=== PATIENT | male | born 1950 | race Caucasian/White ===

== ENCOUNTER → 2017-05-14 | Outpatient (CLI) | payer MEDICARE, BC ==
[2017-05-14 13:19] LABS: ABSOLUTE BASOPHILS # (AUTO) 0.1 10^3/uL (0.0-0.2); ABSOLUTE EOSINOPHILS # (AUTO) 0.3 10^3/uL (0.0-0.6); ABSOLUTE LYMPHOCYTES (AUTO) 1.8 10^3/uL (0.5-4.7); ABSOLUTE MONOCYTES (AUTO) 0.4 10^3/uL (0.1-1.4); EOSINOPHILS % (AUTO) 4.7 % (0-6); HEMATOCRIT 44.3 % (37.9-51.0); HEMOGLOBIN 15.2 g/dL (13.5-17.0); LYMPHOCYTES % (AUTO) 32.8 % (13-45); MEAN CORPUSCULAR HEMOGLOBIN 30.3 pg (27.0-33.4); MEAN CORPUSCULAR HGB CONC 34.2 g/dL (32.0-36.0); MEAN CORPUSCULAR VOLUME 89 fl (80-97); MONOCYTES % (AUTO) 7.1 % (3-13); PLATELET COUNT 202 10^3/uL (150-450); RED CELL DISTRIBUTION WIDTH 14.3 % (11.5-14.0); SEGMENTED NEUTROPHILS % (AUTO) 54.4 % (42-78); TOTAL CELLS COUNTED % (AUTO) 100 %; WHITE BLOOD COUNT 5.5 10^3/uL (4.0-10.5)
[2017-05-14 13:37] LABS: ALANINE AMINOTRANSFERASE 32 U/L (21-72); ALKALINE PHOSPHATASE 61 U/L (38-126); ANION GAP 5 (5-19); ASPARTATE AMINO TRANSFERASE 23 U/L (17-59); BILIRUBIN,DIRECT 0.3 mg/dL (0.0-0.4); BILIRUBIN,TOTAL 0.5 mg/dL (0.2-1.3); BLOOD UREA NITROGEN 16 mg/dL (7-20); CALCIUM 9.1 mg/dL (8.4-10.2); CARBON DIOXIDE 30 mmol/L (22-30); CHLORIDE 105 mmol/L (98-107); CHOLESTEROL 209.28 mg/dL (0-200); GLUCOSE 89 mg/dL (75-110); POTASSIUM 4.4 mmol/L (3.6-5.0); SODIUM 140.4 mmol/L (137-145); TOTAL PROTEIN 6.8 g/dL (6.3-8.2); TRIGLYCERIDES 121 mg/dL (<150)
[2017-05-14 13:48] LABS: DIRECT LDL 163 mg/dL (<100)
[2017-05-14 13:55] LABS: FREE T4 (FREE THYROXINE) 1.12 ng/dL (0.78-2.19)
[2017-05-14 14:09] LABS: THYROID STIMULATING HORMONE 4.69 uIU/mL (0.47-4.68)
== END ==
LOC: OD 11:49
DX: R53.83 Other fatigue (principal); Z79.899 Other long term (current) drug therapy; Z12.5 Encounter for screening for malignant neoplasm of prostate; R73.9 Hyperglycemia, unspecified; E78.5 Hyperlipidemia, unspecified; E03.9 Hypothyroidism, unspecified; E55.9 Vitamin D deficiency, unspecified
CPT/HCPCS: 36415; 84439; 82306; 84443; 85025; 80053; 83036; 80061; G0103

== ENCOUNTER → 2017-08-20 | Outpatient (CLI) | payer MEDICARE, BC ==
[2017-08-20 14:11] LABS: FREE T4 (FREE THYROXINE) 1.33 ng/dL (0.78-2.19)
[2017-08-20 14:25] LABS: THYROID STIMULATING HORMONE 0.17 uIU/mL (0.47-4.68)
== END ==
LOC: OD 12:24
PROVIDERS: ATTEND Internal Medicine
DX: E03.9 Hypothyroidism, unspecified (principal)
CPT/HCPCS: 36415; 84439; 84443

== ENCOUNTER → 2018-04-28 | Outpatient (CLI) | payer MEDICARE, BC ==
--- NOTE | 2018-04-29 09:45 | RADIOLOGY REPORT (SQ) ---
EXAM DESCRIPTION: PET CT SKULL/THIGH COMPLETED DATE/TIME: 04/28/2018 10:06 pm REASON FOR STUDY: R91.8 OTHER NONSPECIFIC ABNORMAL FINDING OF LUNG FIELD R91.8 OTHER NONSPECIFIC AB NORMAL FINDING OF LUNG FIELD COMPARISON: Patient's original CT of the chest was done at another facility. RADIONUCLIDE AND DOSE: 10 mCi F18 FDG The route of agent administration: Intravenous FASTING BLOOD SUGAR: 61 mg/dl CONTRAST TYPE AND DOSE: No CT contrast given. TECHNIQUE: Blood glucose level was verified. Above dose of FDG was injected intravenously. 2-D seg mented attenuation correction images were obtained from the base of the skull to the midthighs. Nonc ontrast CT images were obtained for attenuation correction and fusion with emission images. CT image s were performed without oral or intravenous contrast and are not sensitive for parenchymal lesions. A series of overlapping emission PET images were obtained. Images reviewed and manipulated at [facility] work station by the radiologist. Images stored on PACS. LIMITATIONS: None. FINDINGS: HEAD AND NECK: No areas of abnormal metabolic activity in the soft tissues of the head and neck. CHEST: There is a mass in the posterior left upper lobe which has a bilobed configuration and is eith er a single mass or two masses adjacent to each other. The larger component measures 2.6 x 3.1 cm wi th mean SUV 12.99. The second smaller component, located just inferior and anterior, measures 2.2 cm with mean SUV 16.93. There are two lymph nodes in the left hilum which are difficult to measure on noncontrast CT. Mean SUV values 10.13 and 8.77. ABDOMEN AND PELVIS: No areas of abnormal metabolic activity in the abdomen or pelvis. Expected physi ologic activity is present in the genitourinary system and bowel. PROXIMAL LOWER EXTREMITIES: No areas of abnormal metabolic activity in the soft tissues of the lower extremities. BONES: No abnormal metabolic activity in the visualized skeleton. ADDITIONAL CT FINDINGS: Infrarenal abdominal aortic aneurysm with maximum transverse measurement 3.5 cm. No additional significant findings on the noncontrast CT images. OTHER: No other significant findings. Background blood pool activity mean SUV 1.36. Background live r activity mean SUV 2.02. IMPRESSION: 1. BILOBED MASS IN THE POSTERIOR LEFT UPPER LOBE DESCRIBED. LEFT HILAR ADENOPATHY CONSISTENT WITH METASTASES. NO OTHER AREAS OF ABNORMAL ACTIVITY IN THE CHEST. NO EVIDENCE OF METASTATIC INVOLVEMEN T IN THE HEAD AND NECK, ABDOMEN, OR PELVIS. 2. 3.5 CM INFRARENAL ABDOMINAL AORTIC ANEURYSM. TECHNICAL DOCUMENTATION: JOB ID: [id number] [employer]- All Rights Reserved Reading location - IP/workstation name: [facility]
== END ==
LOC: RAD 19:31
PROVIDERS: ATTEND Internal Medicine Medical Oncology
DX: R91.8 Other nonspecific abnormal finding of lung field (principal); I71.4 Abdominal aortic aneurysm, without rupture
CPT/HCPCS: 78815; A9552

== ENCOUNTER 2018-04-30 08:55 | Day surgery (SDC) | payer MEDICARE, BC ==
[2018-04-30 10:07] LABS: HEMATOCRIT 42.5 % (37.9-51.0); HEMOGLOBIN 14.6 g/dL (13.5-17.0); MEAN CORPUSCULAR HEMOGLOBIN 30.2 pg (27.0-33.4); MEAN CORPUSCULAR HGB CONC 34.4 g/dL (32.0-36.0); MEAN CORPUSCULAR VOLUME 88 fl (80-97); PLATELET COUNT 220 10^3/uL (150-450); RED BLOOD COUNT 4.83 10^6/uL (4.35-5.55); RED CELL DISTRIBUTION WIDTH 14.1 % (11.5-14.0); WHITE BLOOD COUNT 7.9 10^3/uL (4.0-10.5)
[2018-04-30 10:13] LABS: INTERNATIONAL RATION (INR) 0.94; PARTIAL THROMBOPLASTIN TIME 27.6 SEC (23.5-35.8); PROTHROMBIN TIME 13.1 SEC (11.4-15.4)
[2018-04-30 10:29] LABS: BLOOD UREA NITROGEN 17 mg/dL (7-20)
[2018-04-30] MEDS ORDERED: FENTANYL CITRATE INJ/PF 100 MCG/2 ML AMPUL ONE (11:00)
[2018-04-30] MEDS ORDERED: LIDOCAINE 1% INJ-PF (10 MG/ML) 30 ML SDV ONE (11:00)
[2018-04-30] MEDS ORDERED: MIDAZOLAM 2 MG/2 ML INJ ONE (11:00)
--- NOTE | 2018-04-30 12:27 | RADIOLOGY REPORT (SQ) ---
EXAM DESCRIPTION: CHEST SINGLE VIEW COMPLETED DATE/TIME: 04/30/2018 12:17 pm REASON FOR STUDY: ABNORMAL FINDING OF LUNG FIELD. POST BIOPSY COMPARISON: None. EXAM PARAMETERS: NUMBER OF VIEWS: One view. TECHNIQUE: Single frontal radiographic view of the chest acquired. RADIATION DOSE: NA LIMITATIONS: None. FINDINGS: LUNGS AND PLEURA: Hazy density in the left upper lobe. Lungs otherwise clear. No pleural effusion. No pneumothorax. MEDIASTINUM AND HILAR STRUCTURES: No masses. Contour normal. HEART AND VASCULAR STRUCTURES: Heart normal in size. Normal vasculature. BONES: No acute findings. HARDWARE: None in the chest. OTHER: No other significant finding. IMPRESSION: NO PNEUMOTHORAX FOLLOWING PERCUTANEOUS LUNG BIOPSY. HAZY DENSITY IN THE LEFT UPPER LOBE SECONDARY TO LUNG MASS AND POST BIOPSY CHANGE. TECHNICAL DOCUMENTATION: JOB ID: [id number] [employer]- All Rights Reserved Reading location - IP/workstation name: [email or web address]
--- NOTE | 2018-04-30 13:12 | RADIOLOGY REPORT (SQ) ---
EXAM DESCRIPTION: CT BIOPSY LUNG/MEDIASTINUM; CT NEEDLE PLACEMENT COMPLETED DATE/TIME: 04/30/2018 11:43 am REASON FOR STUDY: ABNORMAL FINDING OF LUNG FIELD; ABNORMAL FINDING OF LUNG FIELD, LUNG BIOPSY R91.8 OTHER NONSPECIFIC ABNORMAL FINDING OF LUNG FIELD Z79.01 PRISON (CURRENT) USE OF ANTICOAGULANTS COMPARISON: None. FLUORO TIME: 5.4 seconds of fluoroscopy was used. 111 CT fluoroscopic images were obtained and saved to PACS. LIMITATIONS: None. PROCEDURE: After obtaining informed consent and explaining the risks and benefits of conscious sedat ion,the patient agreed to the procedure. The patient was brought to the CT suite and was placed prone on the CT gurney. The patient was prepped and draped in the usual sterile fashion . Axial images we re obtained for targeting of theleft upper lobe. An appropriate access site was selected. IV consciou s sedation was administered and physician direction by the registered nurse using 1 milligrams of Alvarado sed and 75 micrograms of fentanyl. Physiologic monitoring was provided before, during, and after arpan tion. The total sedation time was 37 minutes. Documentation face to face time, the performing proceduralist, spent monitoring the patient: [address] scanners at this facility use dose modulation, iterative reconstruction, and/or weight based d osing when appropriate to reduce radiation dose to as low as reasonably achievable (ALARA). [facility]: Dose Right [facility]: CareDose [facility]: Dose Right [facility]: Teradose 4D [facility]: [employer] After sterile skin prep and local lidocaine for skin and deep tissue anesthesia, a coaxial biopsy nee dle was used to obtain multiple cores of tissue. The biopsy tissue was submitted to the lab. There we re no immediate complications. Pathology is pending at the time of dictation. IMPRESSION: SUCCESSFUL CT GUIDED PERCUTANEOUS LUNG BIOPSY OF THE LEFT UPPER LOBE. COMMENT: Patient medication list reviewed: Yes- Quality ID# [id number]:Eligible professional attests to doc umenting in the medical record they obtained, updated, or reviewed the patient's current medications. . Quality ID 145: Final reports for procedures using fluoroscopy that document radiation exposure tiburcio nirmala, or exposure time and number of fluorographic images (if radiation exposure indices are not avail able) Quality ID # 436: Final reports with documentation of one or more dose reduction techniques (e.g., Au tomated exposure control, adjustment of the mA and/or kV according to patient size, use of iterative reconstruction technique) TECHNICAL DOCUMENTATION: JOB ID: [id number] [employer]- All Rights Reserved Reading location - IP/workstation name: [email or web address]
--- NOTE | 2018-04-30 13:12 | RADIOLOGY REPORT (SQ) ---
EXAM DESCRIPTION: CT BIOPSY LUNG/MEDIASTINUM; CT NEEDLE PLACEMENT COMPLETED DATE/TIME: 04/30/2018 11:43 am REASON FOR STUDY: ABNORMAL FINDING OF LUNG FIELD; ABNORMAL FINDING OF LUNG FIELD, LUNG BIOPSY R91.8 OTHER NONSPECIFIC ABNORMAL FINDING OF LUNG FIELD Z79.01 ALF (CURRENT) USE OF ANTICOAGULANTS COMPARISON: None. FLUORO TIME: 5.4 seconds of fluoroscopy was used. 111 CT fluoroscopic images were obtained and saved to PACS. LIMITATIONS: None. PROCEDURE: After obtaining informed consent and explaining the risks and benefits of conscious sedat ion,the patient agreed to the procedure. The patient was brought to the CT suite and was placed prone on the CT gurney. The patient was prepped and draped in the usual sterile fashion . Axial images we re obtained for targeting of theleft upper lobe. An appropriate access site was selected. IV consciou s sedation was administered and physician direction by the registered nurse using 1 milligrams of Alvarado sed and 75 micrograms of fentanyl. Physiologic monitoring was provided before, during, and after arpan tion. The total sedation time was 37 minutes. Documentation face to face time, the performing proceduralist, spent monitoring the patient: [address] scanners at this facility use dose modulation, iterative reconstruction, and/or weight based d osing when appropriate to reduce radiation dose to as low as reasonably achievable (ALARA). [facility]: Dose Right [facility]: CareDose [facility]: Dose Right [facility]: Teradose 4D [facility]: [employer] After sterile skin prep and local lidocaine for skin and deep tissue anesthesia, a coaxial biopsy nee dle was used to obtain multiple cores of tissue. The biopsy tissue was submitted to the lab. There we re no immediate complications. Pathology is pending at the time of dictation. IMPRESSION: SUCCESSFUL CT GUIDED PERCUTANEOUS LUNG BIOPSY OF THE LEFT UPPER LOBE. COMMENT: Patient medication list reviewed: Yes- Quality ID# [id number]:Eligible professional attests to doc umenting in the medical record they obtained, updated, or reviewed the patient's current medications. . Quality ID 145: Final reports for procedures using fluoroscopy that document radiation exposure tiburcio nirmala, or exposure time and number of fluorographic images (if radiation exposure indices are not avail able) Quality ID # 436: Final reports with documentation of one or more dose reduction techniques (e.g., Au tomated exposure control, adjustment of the mA and/or kV according to patient size, use of iterative reconstruction technique) TECHNICAL DOCUMENTATION: JOB ID: [id number] [employer]- All Rights Reserved Reading location - IP/workstation name: [facility]
--- NOTE | 2018-04-30 14:25 | RADIOLOGY REPORT (SQ) ---
EXAM DESCRIPTION: CHEST SINGLE VIEW COMPLETED DATE/TIME: 04/30/2018 2:16 pm REASON FOR STUDY: ABNORMAL FINDING OF LUNG FIELD. POST BIOPSY--- 2 HR FILM COMPARISON: 04/30/2018 at 1204 hours. EXAM PARAMETERS: NUMBER OF VIEWS: One view. TECHNIQUE: Single frontal radiographic view of the chest acquired. RADIATION DOSE: NA LIMITATIONS: None. FINDINGS: LUNGS AND PLEURA: No pneumothorax. Left upper lobe density unchanged. MEDIASTINUM AND HILAR STRUCTURES: No masses. Contour normal. HEART AND VASCULAR STRUCTURES: Heart normal in size. Normal vasculature. BONES: No acute findings. HARDWARE: None in the chest. OTHER: No other significant finding. IMPRESSION: STABLE APPEARANCE. NO PNEUMOTHORAX 2 HOURS FOLLOWING PERCUTANEOUS LEFT LUNG BIOPSY. TECHNICAL DOCUMENTATION: JOB ID: [id number] [employer]- All Rights Reserved Reading location - IP/workstation name: [facility]
[2018-04-30 15:00] VITALS: BP 114/68
== END 2018-04-30 15:01 | disposition home or self-care (01) ==
LOC: RAD 08:55
PROVIDERS: ATTEND Internal Medicine Medical Oncology
DX: C34.12 Malignant neoplasm of upper lobe, left bronchus or lung (principal); Z79.01 Long term (current) use of anticoagulants; Z79.899 Other long term (current) drug therapy; Z79.82 Long term (current) use of aspirin
CPT/HCPCS: 36415; 84520; 82565; 85027; 85610; 85730; 88342 ×2; 88341 ×2; 88305 ×2; 88313 ×2; 71045; 77012; 32405; J2250; J3010; J3490

== ENCOUNTER → 2018-05-05 | Outpatient (CLI) | payer MEDICARE, BC ==
--- NOTE | 2018-05-05 15:48 | RADIOLOGY REPORT (SQ) ---
EXAM DESCRIPTION: MRI HEAD COMBO COMPLETED DATE/TIME: 05/05/2018 3:10 pm REASON FOR STUDY: LUNG CANCER C34.12 MALIGNANT NEOPLASM OF UPPER LOBE, LEFT BRONCHUS OR JESS COMPARISON: PET-CT 04/28/2018 TECHNIQUE: Multiplanar imaging includes noncontrasted T1, T2, FLAIR, diffusion with ADC map and post gadolinium contrast T1 sequences. Images stored on PACS. CONTRAST TYPE AND DOSE: 15 mL Dotarem. RENAL FUNCTION: Creatinine 1.2 GFR 62 LIMITATIONS: None. FINDINGS: ANATOMY: No anomalies. Normal vascular flow voids. Pituitary fossa normal. CSF SPACES: Normal in size and contour. No hemorrhage. CEREBRUM: Sulci and gyri normal in size and contour. There are a few scattered areas of increased wh ite matter signal on FLAIR imaging. No evidence of hemorrhage, mass, or extraaxial fluid collection. No abnormal enhancement post contrast. POSTERIOR FOSSA: No signal alteration. No hemorrhage. No edema, masses, or mass effect. Internal kvng tory canals, cerebellopontine angles, mastoids normal. No enhancing lesions. No abnormal enhancement post contrast. DIFFUSION IMAGING: Negative for acute or subacute infarction. ORBITS: No masses. Globes normal. PARANASAL SINUSES: No fluid levels. Mucosa normal. OTHER: No other significant finding. IMPRESSION: Mild chronic microvascular ischemia with no acute intracranial imaging findings. There is no evidence of intracranial metastases. EVIDENCE OF ACUTE STROKE: NO. TECHNICAL DOCUMENTATION: JOB ID: [id number] [employer]- All Rights Reserved Reading location - IP/workstation name: [facility]
== END ==
LOC: RAD 14:00
PROVIDERS: ATTEND Internal Medicine
DX: C34.12 Malignant neoplasm of upper lobe, left bronchus or lung (principal)
CPT/HCPCS: 82565; 70553; A9576

== ENCOUNTER 2018-06-29 06:59 | Day surgery (SDC) | payer MEDICARE, BC ==
[~2018-06-29 06:59] MED LIST: CEFAZOLIN 1 GM/D5W RTU 1 GM/50 ML RTUPB IV PRN; DEXTROSE 5%-1/2 NORMAL SALINE 500 ML IV PRN; DIAZEPAM 5 MG TABLET PO PRN; OXYCODONE-ACETAMINOPHEN 5-325 MG TABLET PO PRN
[2018-06-29 07:43] LABS: HEMATOCRIT 39.8 % (37.9-51.0); HEMOGLOBIN 13.8 g/dL (13.5-17.0); MEAN CORPUSCULAR HEMOGLOBIN 30.8 pg (27.0-33.4); MEAN CORPUSCULAR HGB CONC 34.6 g/dL (32.0-36.0); MEAN CORPUSCULAR VOLUME 89 fl (80-97); PLATELET COUNT 138 10^3/uL (150-450); RED BLOOD COUNT 4.46 10^6/uL (4.35-5.55); RED CELL DISTRIBUTION WIDTH 15.5 % (11.5-14.0)
[2018-06-29] MEDS ORDERED: CEFAZOLIN 1 GM/D5W RTU 1 GM/50 ML RTUPB IV ONE (07:56)
[2018-06-29] MEDS ORDERED: DIAZEPAM 5 MG TABLET ONE (07:56)
[2018-06-29] MEDS ORDERED: OXYCODONE-ACETAMINOPHEN 5-325 MG TABLET ONE (07:56)
[2018-06-29 08:10] LABS: ANION GAP 10 (5-19); BLOOD UREA NITROGEN 16 mg/dL (7-20); CALCIUM 8.3 mg/dL (8.4-10.2); CARBON DIOXIDE 20 mmol/L (22-30); CHLORIDE 107 mmol/L (98-107); GLUCOSE 104 mg/dL (75-110); POTASSIUM 4.6 mmol/L (3.6-5.0); SODIUM 136.9 mmol/L (137-145)
[2018-06-29] MEDS ORDERED: LIDOCAINE 0.5% INJ-PF (5 MG/ML) 50 ML SDV ONE ×2 (09:35→10:20)
[2018-06-29] MEDS ORDERED: MIDAZOLAM 2 MG/2 ML INJ ONE (09:35)
[2018-06-29] MEDS ORDERED: BACITRACIN INJ 50,000 UNIT VIAL ONE (09:36)
[2018-06-29] MEDS ORDERED: FENTANYL CITRATE INJ/PF 100 MCG/2 ML AMPUL ONE (09:36)
--- NOTE | 2018-06-29 10:50 | RADIOLOGY REPORT (SQ) ---
EXAM DESCRIPTION: CHEST SINGLE VIEW COMPLETED DATE/TIME: 06/29/2018 8:34 am REASON FOR STUDY: PREOP COMPARISON: 04/30/2018 EXAM PARAMETERS: NUMBER OF VIEWS: One view. TECHNIQUE: Single frontal radiographic view of the chest acquired. RADIATION DOSE: NA LIMITATIONS: None. FINDINGS: LUNGS AND PLEURA: Mild bandlike scarring or atelectasis left costophrenic angle. No effus ions. MEDIASTINUM AND HILAR STRUCTURES: No masses. Contour normal. HEART AND VASCULAR STRUCTURES: Heart normal in size. Normal vasculature. BONES: No acute findings. HARDWARE: None in the chest. OTHER: No other significant finding. IMPRESSION: NO ACUTE RADIOGRAPHIC FINDING IN THE CHEST. TECHNICAL DOCUMENTATION: JOB ID: [id number] [employer]- All Rights Reserved Reading location - IP/workstation name: [email or web address]
--- NOTE | 2018-06-29 11:00 | Discharge Summary ---
Discharge Summary (SDC) - Discharge Final Diagnosis: Left lung cancer. Date of Surgery: 06/29/18 Discharge Date: 06/29/18 Condition: Fair Treatment or Instructions: Discharge home [after recovery per ASU criteria]. Diet , as tolerated, when fully awake advance as tolerated. Activities within moderation encouraged. Follow up in my office by appointment in about [1 week]. Call for appointment. Leave wounds [covered], [keep clean and dry, until office visit in 1 week]. Hold of on school/work [until evaluation in office]. Meds per med rec. Percocet. May shower [in 48 hrs], [try to keep operated area as dry as possible]. Prescriptions: Oxycodone HCl/Acetaminophen [Percocet 5-325 mg Tablet] 1 tab PO ASDIR PRN #15 tab PRN Reason: Referrals: DANNIELLE SAMSON PA-C [Primary Care Provider] - Discharge Diet: As Tolerated Respiratory Treatments at Home: Deep Breathing/Coughing Discharge Activity: Activity As Tolerated Report the Following to Your Physician Immediately: Shortness of Breath, Unusual Bleeding
--- NOTE | 2018-06-29 11:02 | Operative Report ---
Operative Report DATE OF SURGERY: 06/29/18 PREOPERATIVE DIAGNOSIS: Left lung cancer. POSTOPERATIVE DIAGNOSIS: Left lung cancer. OPERATION: 1. Ultrasound evaluation of the right internal jugular vein. 2. Insertion of single-lumen Port-A-Cath via real-time ultrasound access in the right internal jugular vein. 3. Angiogram and interpretation. SURGEON: ASHLEIGH GIRON RAG WASHER: None. ANESTHESIA: Moderate Sedation TISSUE REMOVED OR ALTERED: Not applicable. COMPLICATIONS: None. ESTIMATED BLOOD LOSS: 5 mL. INTRAOPERATIVE FINDINGS: Of a satisfactory right internal jugular vein, estimated to be about 1.5 cm in diameter. Support Port-A-Cath. Tip of Port-A-Cath just barely down in the right atrium. Satisfactory flow of contrast through the right atrium, ventricle and pulmonary outflow tract. Completion x- ray shows normal looking right apex catheter with no obvious untoward findings. PROCEDURE: After obtaining informed consent, the patient was taken to the Trimmer Buffing Wheel and positioned supine. The [right] neck and chest were prepared with chlorhexidine and draped out with sterile linen. After the " universal timeout", in which it was verified that the patient continued to receive antibiotic, the procedure commenced. A steriley sheathed ultrasound probe was used to evaluate the [right] internal jugular vein. Local anesthesia was infiltrated adjacent to the probe. Access into the [right] internal jugular vein was obtained using a micropuncture needle, followed by micropuncture wire and then a micropuncture catheter. This was followed by introduction of a 0.035 guidewire the tip of which was placed down into the inferior vena cava . The port sites was marked , locally anesthetized and incision made. Dissection now proceeded to the deep subcutaneous subcutaneous tissues so that a pocket for the port was made. Meticulous hemostasis was secured and the catheter was tunneled between the 2 incisions. Proximally, the catheter was now positioned using a peel-away sheath. Distally the catheter was tailored to an appropriate length and then mated to the port using the contained fixating device. The port was now placed in the pocket and the catheter optimally positioned. The port was accessed with a Woods needle and an angiogram done under digital subtraction. The findings as dictated. With adequate and satisfactory positioning, the lumen of the chamber was irrigated with heparinized solution. The wounds were now closed using interrupted 3-0 PDS to the subcutaneous tissues and a continuous subcuticular suture of 4-0 Monocryl to the skin. These are reinforced with Steri-Strips over benzoin and then dressings applied. Time: 0.2 minute. Dose: 10.42 m Gy Contrast: 6 mls. Isovue 300. Copies of the dictated operative report for Dr. Ashleigh Balderrama MD.
[2018-06-29 12:22] VITALS: BP 122/74
--- NOTE | 2018-06-29 14:48 | RADIOLOGY REPORT (SQ) ---
EXAM DESCRIPTION: PORTACATH INSERTION COMPLETED DATE/TIME: 06/29/2018 11:46 am REASON FOR STUDY: C34.12 C34.12 MALIGNANT NEOPLASM OF UPPER LOBE, LEFT BRONCHUS OR JESS Z79.899 [facility] (CURRENT) DRUG THERAPY COMPARISON: None. FLUOROSCOPY TIME: 0.2 minutes Spot images saved to PACS. TECHNIQUE: Intra-operative images acquired during surgical procedure to evaluate progress. NUMBER OF IMAGES: 8 LIMITATIONS: None. FINDINGS: Fluoroscopy was provided for intraoperative procedure. Please refer to the operative repo rt for further discussion. IMPRESSION: IMAGE(S) OBTAINED DURING PROCEDURE. COMMENT: Quality ID 145: Final reports for procedures using fluoroscopy that document radiation exp osure indices, or exposure time and number of fluorographic images (if radiation exposure indices are not available) Please consult full operative report of the attending physician for description of the procedure. TECHNICAL DOCUMENTATION: JOB ID: [id number] [employer]- All Rights Reserved Reading location - IP/workstation name: [email or web address]
== END 2018-06-29 11:45 | disposition home or self-care (01) ==
LOC: CCL 06:59
PROVIDERS: ATTEND Surgery
DX: C34.12 Malignant neoplasm of upper lobe, left bronchus or lung (principal); Z79.899 Other long term (current) drug therapy; E07.9 Disorder of thyroid, unspecified; Z87.891 Personal history of nicotine dependence; Z79.82 Long term (current) use of aspirin
CPT/HCPCS: 36415; 85027; 80048; 36561; 76937; 77001; 71045; C1752; C1788; Q9967; J2250; J3490 ×2; J0690; A9270 ×2; J3010; J1644

== ENCOUNTER 2018-07-14 03:34 | Emergency (ER) | payer MEDICARE, BC ==
[2018-07-14 04:06] LABS: ABSOLUTE EOSINOPHILS # (AUTO) 0.1 10^3/uL (0.0-0.6); ABSOLUTE LYMPHOCYTES (AUTO) 0.7 10^3/uL (0.5-4.7); ABSOLUTE MONOCYTES (AUTO) 0.9 10^3/uL (0.1-1.4); ABSOLUTE NEUT (AUTO) 4.9 10^3/uL (1.7-8.2); BASOPHILS % (AUTO) 0.1 % (0-2); EOSINOPHILS % (AUTO) 0.9 % (0-6); HEMATOCRIT 40.1 % (37.9-51.0); HEMOGLOBIN 13.5 g/dL (13.5-17.0); LYMPHOCYTES % (AUTO) 11.1 % (13-45); MEAN CORPUSCULAR HEMOGLOBIN 30.2 pg (27.0-33.4); MEAN CORPUSCULAR HGB CONC 33.6 g/dL (32.0-36.0); MEAN CORPUSCULAR VOLUME 90 fl (80-97); MONOCYTES % (AUTO) 13.8 % (3-13); PLATELET COUNT 172 10^3/uL (150-450); RED BLOOD COUNT 4.46 10^6/uL (4.35-5.55); RED CELL DISTRIBUTION WIDTH 15.1 % (11.5-14.0); SEGMENTED NEUTROPHILS % (AUTO) 74.1 % (42-78); TOTAL CELLS COUNTED % (AUTO) 100 %; WHITE BLOOD COUNT 6.6 10^3/uL (4.0-10.5)
[2018-07-14 04:14] LABS: ALANINE AMINOTRANSFERASE 25 U/L (21-72); ALBUMIN 3.6 g/dL (3.5-5.0); ALKALINE PHOSPHATASE 101 U/L (38-126); ANION GAP 10 (5-19); ASPARTATE AMINO TRANSFERASE 17 U/L (17-59); BILIRUBIN,DIRECT 0.3 mg/dL (0.0-0.4); BILIRUBIN,TOTAL 0.7 mg/dL (0.2-1.3); BLOOD UREA NITROGEN 16 mg/dL (7-20); CALCIUM 8.6 mg/dL (8.4-10.2); CARBON DIOXIDE 23 mmol/L (22-30); CHLORIDE 105 mmol/L (98-107); CREATINE KINASE 42 U/L (55-170); GLUCOSE 169 mg/dL (75-110); POTASSIUM 4.3 mmol/L (3.6-5.0); SODIUM 138.1 mmol/L (137-145); TOTAL PROTEIN 6.8 g/dL (6.3-8.2)
[2018-07-14 04:25] LABS: CREATINE KINASE MB 0.63 ng/mL (<4.55)
[2018-07-14 04:27] LABS: TROPONIN I 0.107 ng/mL
--- NOTE | 2018-07-14 05:04 | RADIOLOGY REPORT (SQ) ---
EXAM DESCRIPTION: XR CHEST 1 VIEW COMPLETED DATE/TME: 07/14/2018 03:55 CLINICAL HISTORY: 68 years, Male, sob COMPARISON: 06/29/2018 chest NUMBER OF VIEWS: 1 TECHNIQUE: Portable chest LIMITATIONS: None. FINDINGS: Heart size is normal. [id number] catheter in place. Postsurgical change of the cervical spine. Airspace opacity in the lateral right midlung, new from the prior. No pneumothorax. Masslike opacity in the left upper lobe/left suprahilar region as before. IMPRESSION: Masslike opacity in the left upper lobe/suprahilar region, as before. New airspace opacity in the lateral right midlung. This could reflect focal pneumonitis. Other etiologies are not excluded. [id number] catheter in place. copyright 2010 [employer]- All Rights Reserved
--- NOTE | 2018-07-14 05:18 | ER Document Report ---
ED Respiratory Problem - General TRAVEL OUTSIDE OF THE [place] IN LAST 30 DAYS: No <JOSH BANEGAS - Last Filed: 07/14/18 07:53> <MILAGRO MALIK - Last Filed: 07/14/18 12:31> - General Chief Complaint: Shortness Of Breath Stated Complaint: RESPIRATORY DISTRESS Time Seen by Provider: 07/14/18 03:59 Primary Care Provider: DANNIELLE LAGUERRE PA-C [Primary Care Provider] - Follow up as needed Notes: Patient is a 68-year-old male presents to the emergency department for generalized shortness of breath and right lower rib pain. Patient states Friday morning he woke up with pain in his right lower chest. States it feels as though he pulled a muscle. States the pain has slowly been decreasing over the last couple of days and rates it now 4 out of 10. States the pain increases upon coughing and moving. States he does have a history of stage IV non-small cell lung cancer in his left upper lobe. States his oxygen saturation is typically 97%. Patient is denying any generalized cough, congestion, fever. States he is currently on chemotherapy which she had 2 weeks ago and radiation which she had today. Patient states this evening he was walking upstairs to go to sleep when he got short of breath and 911 was alerted. According to EMS re ports patient had a room air saturation of 86%. Patient was given a total of 2 DuoNeb treatments and 125 mg of Solu-Medrol. States his oxygen saturation came up to 98%. Patient's initial room air oxygen saturation in the emergency room was 83%, placed on 2 L of oxygen per nasal cannula came up to 97%. Patient states treatments given by EMS did help his respiratory distress. States he still has a sore feeling in his right lower chest. Past medical history: Hypothyroidism, stage IV small cell lung cancer Medications: Amitriptyline, clonazepam, folic acid, Synthroid Allergies: None Patient's primary care provider is Dr. Laguerre, patient is a full code. Patient's oncologist is Dr. Key (JOSH BANEGAS) - Related Data Allergies/Adverse Reactions: No Known Allergies Allergy (Unverified 04/30/18 10:04) Past Medical History - General Information source: Patient - Social History Smoking Status: Never Smoker Chew tobacco use (# tins/day): No Drug Abuse: None Family History: Reviewed & Not Pertinent Patient has suicidal ideation: No Patient has homicidal ideation: No - Past Medical History Cardiac Medical History: Denies: Hx Coronary Artery Disease, Hx Heart Attack, Hx Hypertension Pulmonary Medical History: Reports: Hx Pneumonia Denies: Hx Asthma, Hx Bronchitis, Hx COPD Neurological Medical History: Denies: Hx Cerebrovascular Accident, Hx Seizures Renal/ Medical History: Denies: Hx Peritoneal Dialysis Musculoskeletal Medical History: Denies Hx Arthritis Past Surgical History: Reports: Hx Orthopedic Surgery - Immunizations Hx Diphtheria, Pertussis, Tetanus Vaccination: - UNKNOWN <JOSH BANEGAS - Last Filed: 07/14/18 07:53> Review of Systems - Review of Systems Constitutional: See HPI. denies: Chills, Fever EENT: See HPI Cardiovascular: See HPI Respiratory: See HPI Gastrointestinal: No symptoms reported Genitourinary: No symptoms reported Male Genitourinary: No symptoms reported Musculoskeletal: See HPI Skin: No symptoms reported Hematologic/Lymphatic: No symptoms reported Neurological/Psychological: No symptoms reported <JOSH BANEGAS - Last Filed: 07/14/18 07:53> Physical Exam <JOSH BANEGAS - Last Filed: 07/14/18 07:53> - Vital signs Vitals: Resp Pulse Ox 29 H 87 L 07/14/18 03:38 07/14/18 03:38 - Notes Notes: GENERAL: Alert, interacts well. No acute distress. HEAD: Normocephalic, atraumatic. EYES: Pupils equal, round, and reactive to light. Extraocular movements intact. ENT: Oral mucosa moist, tongue midline. NECK: Full range of motion. Supple. Trachea midline. LUNGS: Clear to auscultation bilaterally, no wheezes, rales, or rhonchi. Slightly tachypneic with a pulse oxygenation at 90% on 2 L oxygen via nasal ca nnula. HEART: Tachycardic rate and rhythm. No murmur ABDOMEN: Soft, non-tender. Non-distended. Bowel sounds present in all 4 quadrants. EXTREMITIES: Moves all 4 extremities spontaneously. No edema, normal radial and dorsalis pedis pulses bilaterally. No cyanosis. BACK: no cervical, thoracic, lumbar midline tenderness. No saddle anesthesia, normal distal neurovascular exam. NEUROLOGICAL: Alert and oriented x3. Normal speech. cranial nerves II through XII grossly intact PSYCH: Normal affect, normal mood. SKIN: Warm, dry, normal turgor. No rashes or lesions noted. (JOSH BANEGAS) Course - Laboratory Result Diagrams: 07/14/18 03:45 07/14/18 03:45 <JOSH BANEGAS - Last Filed: 07/14/18 07:53> - Laboratory Result Diagrams: 07/14/18 03:45 07/14/18 03:45 <MILAGRO MALIK - Last Filed: 07/14/18 12:31> - Re-evaluation Re-evalutation: 07/14/18 07:50 Discussed this case multiple times with my attending Dr. Faiza Gutierrez. Heparin protocol started due to CTA reading. Extensive intraluminal filling defect consistent with pulmonary emboli bilaterally. These involve the main pulmonary arteries and extending into bilateral upper lower lobe arterial branches. Discussed this case with MICU Dr. Rafaela Rea at [facility] who accepts the patient's for bilateral pulmonary embolus with right heart strain. Patient's initial troponin was 0.107. EKG shows sinus tachycardia rate of 116, QTc 462, incomplete right bundle branch block. Patient's current vital signs are heart rate of 105, SPO2 90% on 2 L, respiratory rate 22, blood pressure 108/78. (JOSH BANEGAS) 07/14/18 11:30 Given by Josh Banegas, KAT 715, bedside evaluation performed, patient stable, no distress and afebrile, slightly tachycardiac waiting for transfer to [facility] to MICU. will likely go to by ground ambulance. vitals are stable. Gr [facility]und ambulance at bedside, stable for transport in no distress for transport. (MILAGRO MALIK) - Vital Signs Vital signs: Temp Pulse Resp BP Pulse Ox 98.0 F 20 103/67 96 07/14/18 09:00 07/14/18 10:01 07/14/18 10:00 07/14/18 10:01 - Laboratory Laboratory results interpreted by me: 07/14/18 07/14/18 07/14/18 03:45 03:45 05:22 RDW 15.1 H Lymphocytes % 11.1 L Monocytes % 13.8 H Glucose 169 H Creatine Kinase 42 L NT-Pro-B Natriuret Pep 1130 H Urine Glucose (UA) Urine Blood Urine Urobilinogen 07/14/18 09:17 RDW Lymphocytes % Monocytes % Glucose Creatine Kinase NT-Pro-B Natriuret Pep Urine Glucose (UA) 50 H Urine Blood SMALL H Urine Urobilinogen 2.0 H Critical Care Note - Critical Care Note Total time excluding time spent on procedures (mins): 40 <JOSH BANEGAS - Last Filed: 07/14/18 07:53> - Critical Care Note Comments: Please allow for 40 minutes of critical care time on this patient. Patient's diagnosis is extensive intraluminal filling defect consistent with bilateral pulmonary emboli. Patient was noted to be hypoxic and tachypneic. Multiple reassessments with respiratory management. Heparin protocol started, transfer of the patient to higher level of care. (JOSH BANEGAS) Discharge - Discharge Admitting Provider: Hospitalist - Dr. Rea <JOSH BANEGAS - Last Filed: 07/14/18 07:53> <MILAGRO MALIK - Last Filed: 07/14/18 12:31> - Discharge Clinical Impression: Pulmonary embolism Qualifiers: Pulmonary embolism type: unspecified Chronicity: acute Acute cor pulmonale pr esence: with acute cor pulmonale Qualified Code(s): I26.09 - Other pulmonary embolism with acute cor pulmonale Condition: Fair Disposition: [facility] Referrals: DANNIELLE LAGUERRE PA-C [Primary Care Provider] - Follow up as needed
[2018-07-14 05:39] LABS: VENOUS BLOOD HCO3 24.7 mmol/L (20-32); VENOUS BLOOD PCO2 44.9 mmHg (35-63); VENOUS BLOOD PH 7.36 (7.30-7.42)
--- NOTE | 2018-07-14 06:19 | RADIOLOGY REPORT (SQ) ---
EXAM DESCRIPTION: CT CHEST ANGIOGRAPHY WITHOUT THEN WITH IV CONTRAST COMPLETED DATE/TME: 07/14/2018 04:19 CLINICAL HISTORY: 68 years, Male, tachy/SOB/lung CA COMPARISON: None. TECHNIQUE: 855 Images stored on PACS. All CT scanners at this facility use dose modulation, iterative reconstruction, and/or weight based dosing when appropriate to reduce radiation dose to as low as reasonably achievable (ALARA). Axial images were obtained with coronal and sagittal MIPS reconstructions. [facility]: Dose Right [facility]: CareDose [facility]: Dose Right [facility]: Teradose 4D [facility]: [employer] LIMITATIONS: None. FINDINGS: [id number] catheter in place. Extensive intraluminal filling defect consistent with pulmonary emboli bilaterally. These involve the main pulmonary arteries and extending into bilateral upper and lower lobe arterial branches. Soft tissue mass/spiculated mass in the left upper lobe, correlate with biopsy results. This measures approximately 3.1 x 3.2 cm. Underlying emphysema. No pneumothorax. Small bibasilar effusions with adjacent atelectasis. The heart size is normal. Negative for thoracic aortic aneurysm or dissection. Limited evaluation of the upper abdomen is unremarkable. Nonenlarged but conspicuous mediastinal nodes. Left hilar adenopathy with adjacent pulmonary emboli could reflect tumor emboli. Osseous structures of the thorax are grossly intact. IMPRESSION: Extensive pulmonary emboli bilaterally, worrisome for tumor emboli, secondary to metastatic left hilar adenopathy as described above. Spiculated left upper lobe mass. Correlate with biopsy results. Small bibasilar effusions. Mild emphysematous changes. This case was discussed by myself with Dr. Banegas at 6:17 AM [place] standard time, 07/14/2018 TECHNICAL DOCUMENTATION: Quality ID # [id number]: Final reports with documentation of one or more dose reduction techniques (e.g., Automated exposure control, adjustment of the mA and/or kV according to patient size, use of iterative reconstruction technique) copyright 2011 [employer]- All Rights Reserved
[2018-07-14] MEDS ORDERED: HEPARIN SOD (PORCINE) 1,000 UNIT/ML 10 ML VIAL IV ONE (06:24)
[2018-07-14] MEDS ORDERED: HEPARIN SODIUM,PORCINE/D5W 25,000 UNIT/250 ML RTUINJ IV PRN (06:24)
[2018-07-14 06:46] LABS: INTERNATIONAL RATION (INR) 1.04; PROTHROMBIN TIME 14.1 SEC (11.4-15.4)
[2018-07-14 06:47] LABS: PARTIAL THROMBOPLASTIN TIME 34.4 SEC (23.5-35.8)
--- NOTE | 2018-07-14 06:59 | ER Document Report ---
Doctor's Note Notes: 07/14/18 06:39 I personally and independently obtained patient history and examined the patient and have reviewed the APC's note, reviewed, discussed and agree with their assessment and plan. HISTORY OF PRESENT ILLNESS: Patient is a 68-year-old male that presents to the emergency department for chief complaint of dyspnea. ROS: Constitutional: Negative for fever. Cardiovascular: chest pain. Respiratory: shortness of breath. Gastrointestinal: Negative for vomiting or abdominal pain Musculoskeletal: Negative for arm, leg or back pain Skin: Negative for rash. Neurological: Negative for weakness or numbness. Unless otherwise stated in this report the patient's positive and negative responses for review of systems for constitutional, eyes, ENT, cardiovascular, respiratory, gastrointestinal, neurological, genitourinary, musculoskeletal, and integumentary systems and related systems to the presenting problem are either as stated in the HPI or were not pertinent or were negative for the symptoms and/or complaints related to the presenting medical problem. PHYSICAL EXAMINATION: Vital signs reviewed, nursing noted reviewed. GENERAL: Mildly diaphoretic, well-nourished HEAD: Atraumatic, normocephalic. EYES: Eyes appear normal, conjunctiva are normal. ENT: nares patent, oropharynx clear without exudates. Moist mucous membranes. NECK: Normal range of motion, supple without lymphadenopathy LUNGS: Breath sounds diminished bilaterally with tachypnea and conversational dyspnea HEART: Tachycardic rate and regular rhythm without murmurs ABDOMEN: Soft, nontender, normoactive bowel sounds. No rebound, guarding, or rigidity. No masses appreciated. EXTREMITIES: Nontender, good range of motion, no pitting or edema. NEUROLOGICAL: No focal neurological deficits. Moves all extremities spontaneously Motor and sensory grossly intact on exam. PSYCH: Normal mood, normal affect. SKIN: Warm, Dry, normal turgor, no rashes or lesions noted on exposed MEDICAL DECISION MAKING: Patient seen and evaluated by myself. He is oxygenating at 93% on nasal cannula oxygen and is conversationally dyspneic but protecting his airway and not requiring noninvasive ventilation. Patient will be started on heparin infusion for his large bilateral PEs. Patient does have right heart strain and elevated troponin and will be transferred to [facility] for possible embolectomy. Please review detail APC documentation. *Note is created using voice recognition software and may contain spelling, syntax or grammatical errors.
[2018-07-14] MEDS ORDERED: NORMAL SALINE 1000 ML 500 ML IV ONE (07:39)
--- NOTE | 2018-07-14 07:50 | EKG REPORT ---
SEVERITY:- ABNORMAL ECG - SINUS TACHYCARDIA INCOMPLETE RIGHT BUNDLE BRANCH BLOCK NONSPECIFIC ST-T CHANGES : Confirmed by: Ady Graves MD 14-Jul-2018 07:50:14
[2018-07-14] MEDS ORDERED: HEPARIN SOD (PORCINE) 1,000 UNIT/ML 10 ML VIAL IV PRN (09:25)
[2018-07-14 09:41] LABS: APPEARANCE,URINE CLEAR; BILIRUBIN,URINE NEGATIVE (NEGATIVE); COLOR,URINE YELLOW; GLUCOSE, URINE 50 mg/dL (NEGATIVE); KETONES,URINE NEGATIVE (NEGATIVE); LEUKOCYTE ESTERASE,URINE NEGATIVE (NEGATIVE); NITRITE,URINE NEGATIVE (NEGATIVE); PROTEIN,URINE NEGATIVE (NEGATIVE); URINE SPECIFIC GRAVITY 1.032
[2018-07-14 11:38] VITALS: BP 104/64
== END 2018-07-14 11:00 | disposition short-term general hospital (02) ==
LOC: ER 03:34
DX: I26.09 Other pulmonary embolism with acute cor pulmonale (principal); R06.02 Shortness of breath; R07.81 Pleurodynia; M79.10 Myalgia, unspecified site; Z79.899 Other long term (current) drug therapy; C34.90 Malignant neoplasm of unspecified part of unspecified bronchus or lung
CPT/HCPCS: 93005; 96376; 99291; 96365; 96366; 36415; 82553; 82550; 85025; 85610; 85730; 80053; 81001; 84484; 82803; 83880; 71045; 71275; 93010; J1644 ×2; J7030

== ENCOUNTER 2018-09-07 19:07 | Emergency (ER) | payer MEDICARE, BC ==
[2018-09-07] MEDS ORDERED: ACETAMINOPHEN 325 MG TABLET PO ONE (19:23)
[2018-09-07] MEDS ORDERED: RINGERS SOLUTION,LACTATED 1,000 ML IV ONE (19:24)
[2018-09-07 20:11] LABS: HEMATOCRIT 28.2 % (37.9-51.0); HEMOGLOBIN 9.9 g/dL (13.5-17.0); MEAN CORPUSCULAR HGB CONC 34.9 g/dL (32.0-36.0); MEAN CORPUSCULAR VOLUME 92 fl (80-97); PLATELET COUNT 131 10^3/uL (150-450); RED BLOOD COUNT 3.08 10^6/uL (4.35-5.55); WHITE BLOOD COUNT 5.1 10^3/uL (4.0-10.5)
[2018-09-07 20:29] LABS: ABSOLUTE LYMPHOCYTES# (MANUAL) 0.3 10^3/uL (0.5-4.7); ABSOLUTE MONOCYTES # (MANUAL) 0.7 10^3/uL (0.1-1.4); BASOPHILS % (MANUAL) 0 % (0-2); EOSINOPHILS % (MANUAL) 2 % (0-6); LYMPHOCYTES % (MANUAL) 5 % (13-45); MONOCYTES % (MANUAL) 14 % (3-13); PLATELET COMMENT DECREASED; SEGMENTED NEUTROPHILS % (MAN) 79 % (42-78); TOTAL CELLS COUNTED 100
[2018-09-07 20:30] LABS: ALANINE AMINOTRANSFERASE 19 U/L (21-72); ALBUMIN 3.5 g/dL (3.5-5.0); ALKALINE PHOSPHATASE 95 U/L (38-126); ANION GAP 10 (5-19); ANISOCYTOSIS 2+; ASPARTATE AMINO TRANSFERASE 14 U/L (17-59); BILIRUBIN,DIRECT 0.2 mg/dL (0.0-0.4); BILIRUBIN,TOTAL 0.4 mg/dL (0.2-1.3); BLOOD UREA NITROGEN 17 mg/dL (7-20); CALCIUM 8.1 mg/dL (8.4-10.2); CARBON DIOXIDE 24 mmol/L (22-30); CHLORIDE 104 mmol/L (98-107); GLUCOSE 113 mg/dL (75-110); POLYCHROMASIA SLIGHT; SODIUM 138.3 mmol/L (137-145); STOMATOCYTES SLIGHT; TOTAL PROTEIN 6.5 g/dL (6.3-8.2)
[2018-09-07 20:31] LABS: OVALOCYTES 1+; SCHISTOCYTES SLIGHT; TOXIC GRANULATION 1+
--- NOTE | 2018-09-07 20:51 | ER Document Report ---
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 The patient states that he has had a diffuse rash which she describes as being like bug bites over his bilateral upper 70s, chest and back that is been present for several weeks. Patient denies history of similar symptoms in the past. States that it did start after his last dose of chemotherapy. The patient states that today he woke up and noticed that the right side of his face was becoming increasingly swollen throughout the day. Nothing associated mild to moderate throbbing, aching, constant discomfort to the area. Nothing seemed to improve or worsen the discomfort. Checked his temperature at home and found to be 101.1, contacted his oncologist Dr. Branch and was instructed to come to the hospital. Patient denies history of similar symptoms in the past. TRAVEL OUTSIDE OF THE [place] IN LAST 30 DAYS: No - Related Data Allergies/Adverse Reactions: No Known Allergies Allergy (Unverified 04/30/18 10:04) Past Medical History - General Information source: Patient - Social History Smoking Status: Never Smoker Frequency of alcohol use: None Drug Abuse: None Lives with: Spouse/Significant other Family History: Reviewed & Not Pertinent Patient has suicidal ideation: No Patient has homicidal ideation: No - Past Medical History Cardiac Medical History: Denies: Hx Coronary Artery Disease, Hx Heart Attack, Hx Hypertension Pulmonary Medical History: Reports: Hx Pneumonia Denies: Hx Asthma, Hx Bronchitis, Hx COPD Neurological Medical History: Denies: Hx Cerebrovascular Accident, Hx Seizures Renal/ Medical History: Denies: Hx Peritoneal Dialysis Musculoskeletal Medical History: Denies Hx Arthritis Past Surgical History: Reports: Hx Orthopedic Surgery - Immunizations Hx Diphtheria, Pertussis, Tetanus Vaccination: - UNKNOWN Review of Systems - Review of Systems Notes: Constitutional: Positive for fever. HENT: Positive for right facial swelling Eyes: Negative for visual changes. Cardiovascular: Negative for chest pain. Respiratory: Negative for shortness of breath. Gastrointestinal: Negative for abdominal pain, vomiting or diarrhea. Genitourinary: Negative for dysuria. Musculoskeletal: Negative for back pain. Skin: Positive for rash. Neurological: Negative for headaches, weakness or numbness. 10 point ROS negative except as marked above and in HPI. Physical Exam - Vital signs Vitals: Temp Pulse Resp BP Pulse Ox 100.2 F 117 H 20 133/75 H 94 09/07/18 19:13 09/07/18 19:13 09/07/18 19:13 09/07/18 19:13 09/07/18 19:13 Interpretation: Tachycardic Notes: PHYSICAL EXAMINATION: GENERAL: Well-appearing, well-nourished and in no acute distress. HEAD: Atraumatic, normocephalic. EYES: Pupils equal round and reactive to light, extraocular movements intact, sclera anicteric, conjunctiva are normal. ENT: nares patent, oropharynx clear without exudates. Poor dentition throughout. Prominent swelling of the right parotid gland. Moist mucous membranes. NECK: Normal range of motion, supple without lymphadenopathy LUNGS: Breath sounds clear to auscultation bilaterally and equal. No wheezes rales or rhonchi. HEART: Regular tachycardia without murmurs ABDOMEN: Soft, nontender, normoactive bowel sounds. No guarding, no rebound. No masses appreciated. EXTREMITIES: Normal range of motion, no pitting or edema. No cyanosis. NEUROLOGICAL: No focal neurological deficits. Moves all extremities spontaneously and on command. PSYCH: Normal mood, normal affect. SKIN: Warm, Dry, normal turgor, scattered areas of small red bumps that look almost like insect bites over the bilateral forearms, back and chest. Course - Re-evaluation Re-evalutation: 09/07/18 20:50 Patient presents with fever and swelling to the right side of his face and neck which appears to be a parotid gland inflammation. Patient also has a nonspecific skin eruption over his bilateral forearms, chest and back that is been present for approximately 1 week. Facial swelling and fever started just today. Sent in by his primary oncologist for further evaluation patient is otherwise very well in appearance, vitals within normal ranges with the exception of a fever at home 201.[address] of the face and neck will be obtained with contrast, labs are pending. Will give IV fluid resuscitation. Patient is otherwise extremely well in appearance, sitting in the room reading a book. 09/08/18 00:03 CT does show parotid gland inflammation, findings consistent with exam. Poor dentition is likewise noted on my exam. Patient has been started on clindamycin for coverage of possible cellulitis versus dental origin. This would also cover for the visualize right otitis media on exam. I discussed this case with the patient's oncologist who is in agreement with discharge home and follow-up with him in the office in the morning. The patient is likewise very much in agreement this plan would prefer to go home. Patient's labs are otherwise unremarkable. At this time will discharge with return precautions and follow-up recommendations. Verbal discharge instructions given a the bedside and opportunity for questions given. Medication warnings reviewed. Patient is in agreement with this plan and has verbalized understanding of return precautions and the need for primary care follow-up in the next 24-72 hours. - Vital Signs Vital signs: Temp Pulse Resp BP Pulse Ox 99.2 F 117 H 18 117/79 97 09/08/18 00:01 09/07/18 19:13 09/08/18 00:01 09/08/18 00:01 09/08/18 00:01 - Laboratory Result Diagrams: 09/07/18 19:42 09/07/18 19:42 Laboratory results interpreted by me: 09/07/18 09/07/18 09/07/18 19:42 19:42 22:21 RBC 3.08 L Hgb 9.9 L Hct 28.2 L RDW 20.0 H Plt Count 131 L Seg Neuts % (Manual) 79 H Lymphocytes % (Manual) 5 L Monocytes % (Manual) 14 H Abs Lymphs (Manual) 0.3 L Glucose 113 H Calcium 8.1 L AST 14 L ALT 19 L Urine Blood MODERATE H - Diagnostic Test Radiology reviewed: Reports reviewed Discharge - Discharge Clinical Impression: Enlarged parotid gland, Poor dentition Right otitis media Qualifiers: Otitis media type: suppurative Chronicity: acute Recurrence: non-recurrent Spontaneous tympanic membrane rupture: without spontaneous rupture Qualified Code(s): H66.001 - Acute suppurative otitis media without spontaneous rupture of ear drum, right ear Fever Qualifiers: Fever type: unspecified Qualified Code(s): R50.9 - Fever, unspecified Condition: Good Disposition: HOME, SELF-CARE Additional Instructions: Please follow-up with your oncologist tomorrow morning as planned. Take antibiotics as prescribed. Return for pain, increasing pain, confusion, severe headache, weakness, numbness or any other symptoms that are worrisome to you. Prescriptions: Clindamycin HCl 300 mg PO TID #30 capsule Referrals: DANNIELLE SAMSON PA-C [Primary Care Provider] - Follow up as needed EDWARD BRANCH MD [ACTIVE STAFF] - Follow up tomorrow
[2018-09-07 22:47] LABS: APPEARANCE,URINE CLEAR; BILIRUBIN,URINE NEGATIVE (NEGATIVE); COLOR,URINE YELLOW; GLUCOSE, URINE NEGATIVE (NEGATIVE); KETONES,URINE NEGATIVE (NEGATIVE); LEUKOCYTE ESTERASE,URINE NEGATIVE (NEGATIVE); NITRITE,URINE NEGATIVE (NEGATIVE); PROTEIN,URINE NEGATIVE (NEGATIVE); URINE SPECIFIC GRAVITY 1.013; UROBILINOGEN,URINE NEGATIVE mg/dL (<2.0)
--- NOTE | 2018-09-07 23:19 | RADIOLOGY REPORT (SQ) ---
EXAM DESCRIPTION: CT NECK CHEST WITH IV CONTRAST COMPLETED DATE/TME: 09/07/2018 20:10 CLINICAL HISTORY: facial/neck swelling, fever, hx cancer COMPARISON: None Available. TECHNIQUE: Contiguous axial images of the neck were obtained after the administration of intravenous contrast. This exam was performed according to our departmental dose-optimization program, which includes automated exposure control, adjustment of the mA and/or kV according to patient size and/or use of iterative reconstruction technique. FINDINGS: There is an infusion catheter with access through the right jugular vein. There is stranding of the subcutaneous fat within the right side of the neck and enlargement of the right parotid gland which could be secondary to an infectious or inflammatory process. Submandibular glands are symmetric bilaterally. The airway is patent. Incidental note is of a noncalcified a 2.5 x 1.8 cm pulmonary nodule within the left upper lung compatible with malignancy. There are emphysematous changes of the upper lobe. Patient is status post cervical spine surgery. There is atherosclerosis. Biapical lucencies at the level of the maxilla and mandible compatible with periapical abscesses/ poor dentition. Correlation with dental/oral examination is recommended. IMPRESSION: Stranding of the subcutaneous fat within the right side of the neck and enlargement of the right parotid gland could be secondary to an infectious process. Underlying cellulitis is a consideration. Poor dentition. Periapical abscesses. Correlation with dental/oral examination recommended. Noncalcified pulmonary nodule at the left upper lung compatible with malignancy.
[2018-09-07] MEDS ORDERED: CLINDAMYCIN PHOSPHATE INJ 300 MG/2 ML SDV IV ONE (23:26)
[2018-09-08 00:27] VITALS: BP 117/79
== END 2018-09-08 00:27 | disposition home or self-care (01) ==
LOC: ER 19:07
DX: H66.001 Acute suppurative otitis media without spontaneous rupture of ear drum, right ear (principal); K04.7 Periapical abscess without sinus; R59.0 Localized enlarged lymph nodes; R50.9 Fever, unspecified; R00.0 Tachycardia, unspecified; R21 Rash and other nonspecific skin eruption; C34.90 Malignant neoplasm of unspecified part of unspecified bronchus or lung; C79.31 Secondary malignant neoplasm of brain; Z79.899 Other long term (current) drug therapy
CPT/HCPCS: 36415; 87040; 87086; 85025; 80053; 81001; 83605; 70491; A9270; J3490; J7120; 36591; 96361; 96365; 99284

== ENCOUNTER 2018-09-08 10:53 | Inpatient (IN) | payer MEDICARE, BC ==
[2018-09-08] MEDS ORDERED: ACETAMINOPHEN 325 MG TABLET PO PRN (11:33)
[2018-09-08] MEDS ORDERED: DEXTROSE 40% GEL 15 GM TUBE PO PRN ×2 (11:33)
[2018-09-08] MEDS ORDERED: GLUCAGON,HUMAN RECOMB 1 MG INJ SUBCUT PRN (11:33)
[2018-09-08] MEDS ORDERED: DEXTROSE 50%-WATER 25 GM/50 ML DISP.SYRIN IV PRN ×2 (11:33)
[2018-09-08] MEDS ORDERED: ONDANSETRON HCL INJ/PF 4 MG/2 ML SDV IV PRN ×2 (11:33→15:00)
[2018-09-08 13:06] LABS: HEMATOCRIT 27.2 % (37.9-51.0); HEMOGLOBIN 9.3 g/dL (13.5-17.0); MEAN CORPUSCULAR HEMOGLOBIN 31.5 pg (27.0-33.4); MEAN CORPUSCULAR HGB CONC 34.3 g/dL (32.0-36.0); MEAN CORPUSCULAR VOLUME 92 fl (80-97); PLATELET COUNT 124 10^3/uL (150-450); RED BLOOD COUNT 2.96 10^6/uL (4.35-5.55); RED CELL DISTRIBUTION WIDTH 20.2 % (11.5-14.0); WHITE BLOOD COUNT 5.9 10^3/uL (4.0-10.5)
[2018-09-08 13:27] LABS: ALANINE AMINOTRANSFERASE 17 U/L (21-72); ALBUMIN 3.4 g/dL (3.5-5.0); ALKALINE PHOSPHATASE 80 U/L (38-126); ANION GAP 9 (5-19); ASPARTATE AMINO TRANSFERASE 13 U/L (17-59); BILIRUBIN,DIRECT 0.2 mg/dL (0.0-0.4); BILIRUBIN,TOTAL 0.5 mg/dL (0.2-1.3); BLOOD UREA NITROGEN 16 mg/dL (7-20); CALCIUM 7.9 mg/dL (8.4-10.2); CARBON DIOXIDE 25 mmol/L (22-30); CHLORIDE 104 mmol/L (98-107); GLUCOSE 108 mg/dL (75-110); PHOSPHORUS 2.4 mg/dL (2.5-4.5); POTASSIUM 3.9 mmol/L (3.6-5.0); SODIUM 138.3 mmol/L (137-145); TOTAL PROTEIN 6.3 g/dL (6.3-8.2)
[2018-09-08] MEDS: AMPICILLIN SODIUM/SULBACTAM NA 3 GM in NORMAL SALINE 100 ML IV SCH ×2 (14:34→20:29)
--- NOTE | 2018-09-08 17:14 | PDOC H&P ---
History of Present Illness Admission Date/PCP: 09/08/18 10:53 DANNIELLE SAMSON PA-C Patient complains of: R FACIAL SWELLING History of Present Illness: MELISSA LESLIE is a 68 year old male with a PMH of HYPERthyroidism, lung cancer with brain mets (completed 2 cycles of chemotherapy), DVT, PE. The patient is a direct admit from Dr. Ha for right facial swelling. The patient reports that 48 hours ago he woke up and his right face was swollen. Patient denies difficulty eating, drinking or managing oral secretions. He went to [facility] emergency department yesterday. CT soft tissue neck showed stranding in the subcutaneous fat on the right side of the neck and enlargement of the right parotid gland and periapical abscesses. Patient was discharged home with oral clindamycin. He states that he woke up today and the right facial swelling was worse. The patient notified his oncologist, who directed him to come straight to [facility]. Upon evaluation, there is significant swelling to the right mandibular area. There is little submandibular swelling. Able to visualize the oropharynx without difficulty, unable to fully visualize the uvula. Patient is a MALLAMPATI III. The patient is alert and oriented, able to answer all questions appropriately. His speech is free and clear. Again, the patient denies difficulty with swallowing solid food, drinking liquids or managing oral secretions. The patient denies facial pain, fevers, dysphasia. He complains of mild dyspnea. Denies cough, chest pain or palpitations. Discussed the patient's case with oral surgeon, Dr. Guillaume, who recommends IV antibiotics and steroids at this time. Will reevaluate for the need for oral surgery if the patient's clinical picture does not improve or if it should worsen. Plan to admit to hospitalist service for facial cellulitis, periapical abscesses and parotid gland infection. Past Medical History Past Medical History: PULMONARY EMBOLI. DVT Cardiac Medical History: Denies: Coronary Artery Disease, Myocardial Infarction, Hypertension Pulmonary Medical History: Reports: Pneumonia Denies: Asthma, Bronchitis, Chronic Obstructive Pulmonary Disease (COPD) Neurological Medical History: Denies: Seizures Endocrine Medical History: Reports: Hyperthyroidism Malignancy Medical History: Reports: Lung Cancer Musculoskeltal Medical History: Denies: Arthritis Hematology: Denies: Anemia Past Surgical History Past Surgical History: Reports: Orthopedic Surgery - cspine fusion, Other - cleft palate repair Social History Information Source: Patient Lives with: Family Smoking Status: Former Smoker Number of Years Smokin Frequency of Alcohol Use: None Hx Recreational Drug Use: No Drugs: None Hx Prescription Drug Abuse: No - Advance Directive Resuscitation Status: Full Code Family History Family History: Reviewed & Not Pertinent Parental Family History Reviewed: Yes Children Family History Reviewed: Yes Sibling(s) Family History Reviewed.: Yes Medication/Allergy Home Medications: Amitriptyline HCl [Elavil 50 Mg Tablet] 50 mg PO QHS 09/08/18 Clindamycin HCl [Cleocin 300 mg Capsule] 300 mg PO Q8 09/08/18 Clonazepam [Klonopin 1 mg Tablet] 1 mg PO TIDP PRN 09/08/18 Folic Acid [Folvite 1 mg Tablet] 2 mg PO QHS 09/08/18 Levothyroxine Sodium [Synthroid] 175 mcg PO Q6AM 09/08/18 Rivaroxaban [Xarelto] 20 mg PO QHS 09/08/18 Allergies/Adverse Reactions: No Known Allergies Allergy (Unverified 04/30/18 10:04) Review of Systems Constitutional: ABSENT: headache(s) Eyes: ABSENT: visual disturbances Ears: ABSENT: hearing changes Nose, Mouth, and Throat: ABSENT: mouth pain, sore throat Cardiovascular: ABSENT: chest pain Respiratory: PRESENT: dyspnea Gastrointestinal: ABSENT: abdominal pain Genitourinary: ABSENT: dysuria, hematuria Musculoskeletal: ABSENT: joint swelling Integumentary: PRESENT: rash - rash noted to entire surface area of the back Neurological: ABSENT: abnormal gait Psychiatric: ABSENT: anxiety Endocrine: ABSENT: cold intolerance, heat intolerance Physical Exam Vital Signs: Temp Pulse Resp BP Pulse Ox 100.8 F H 107 H 20 119/72 97 09/08/18 11:11 09/08/18 14:00 09/08/18 11:11 09/08/18 11:11 09/08/18 11:11 Intake & Output 09/07/18 09/08/18 09/09/18 06:59 06:59 06:59 Weight 92.079 kg General appearance: PRESENT: well-developed, well-nourished Eye exam: PRESENT: conjunctiva pink, PERRLA Mouth exam: PRESENT: dry mucosa, tongue midline Teeth exam: PRESENT: poor dentation Throat exam: ABSENT: tonsillar exudate Neck exam: PRESENT: full ROM, other - soft tissue swelling to the R mandiblular space Respiratory exam: PRESENT: clear to auscultation laura, symmetrical, unlabored Cardiovascular exam: PRESENT: +S1, +S2 Pulses: PRESENT: normal radial pulses, normal dorsalis pedis pul Vascular exam: PRESENT: normal capillary refill GI/Abdominal exam: PRESENT: soft. ABSENT: distended, tenderness Rectal exam: PRESENT: deferred Extremities exam: PRESENT: full ROM Musculoskeletal exam: PRESENT: ambulatory, full ROM Neurological exam: PRESENT: alert, awake, oriented to person, oriented to place, oriented to time, oriented to situation Psychiatric exam: PRESENT: appropriate affect Skin exam: PRESENT: dry, intact, normal color Results Laboratory Results: 09/08/18 12:40 09/08/18 12:40 09/08/18 09/08/18 12:40 12:40 WBC 5.9 RBC 2.96 L Hgb 9.3 L Hct 27.2 L MCV 92 MCH 31.5 MCHC 34.3 RDW 20.2 H Plt Count 124 L Sodium 138.3 Potassium 3.9 Chloride 104 Carbon Dioxide 25 Anion Gap 9 BUN 16 Creatinine 1.21 Est GFR ( Amer) > 60 Est GFR (Non-Af Amer) > 60 Glucose 108 Calcium 7.9 L Phosphorus 2.4 L Magnesium 1.7 Total Bilirubin 0.5 AST 13 L ALT 17 L Alkaline Phosphatase 80 Total Protein 6.3 Albumin 3.4 L Status: Imported from PACS Assessment and Plan - Diagnosis (1) Periapical abscess Is this a current diagnosis for this admission?: Yes Plan: Secondary to poor dentition, patient has not seen a dentist in [address] soft tissue neck Initially treated with p.o. clindamycin but soft tissue swelling became worse Consulted oral surgery, Dr. Guillaume who recommends IV antibiotics at this time, no surgical intervention Initiate Ancef 3 g IV every 6 hours Scheduled IV Solu-Medrol Monitor closely for signs and symptoms of airway compromise (difficulty swallowing, worsening soft tissue swelling, drooling, etc.) (2) Enlarged parotid gland Is this a current diagnosis for this admission?: Yes Plan: Likely secondary to poor oral hygiene No evidence of salivary duct stones on CT Plan for IV antibiotics (3) Lung cancer Is this a current diagnosis for this admission?: Yes Plan: H Lung Ca with brain metastasis Completed 2 cycles of chemotherapy Management per Dr. Ha Appreciate his expertise (4) History of pulmonary embolus (PE) Is this a current diagnosis for this admission?: Yes Plan: History of multiple PEs and DVTs Continue home dose xarelto (5) Hyperthyroidism Is this a current diagnosis for this admission?: Yes Plan: PMH hyperthyroidism check TSH in AM continue home dose synthroid - Time Time Spent with patient: 25-34 minutes Medications reviewed and adjusted accordingly: Yes Anticipated discharge: Home Within: Other - when clinically stable - Inpatient Certification Based on my medical assessment, after consideration of the patient's comorbidities, presenting symptoms, or acuity I expect that the services needed warrant INPATIENT care.: Yes I certify that my determination is in accordance with my understanding of Medicare's requirements for reasonable and necessary INPATIENT services [42 CFR 412.3e].: Yes Medical Necessity: Need for IV Antibiotics, Risk of Complication if Not Cared For in Hospital
[2018-09-08] MEDS: RIVAROXABAN 10 MG TABLET PO SCH (17:25)
[2018-09-08] MEDS ORDERED: METHYLPREDNISOLONE INJ 125 MG/2 ML SDV IV ONE (17:30)
[2018-09-08] MEDS: FOLIC ACID 1 MG TABLET PO SCH (22:31)
[2018-09-08] MEDS: AMITRIPTYLINE HCL 50 MG TABLET PO SCH (22:31)
[2018-09-08] MEDS: METHYLPREDNISOLONE INJ 125 MG/2 ML SDV IV SCH (22:31)
[2018-09-08] MEDS: CLONAZEPAM 1 MG TABLET PO PRN (22:35)
[2018-09-09] MEDS: AMPICILLIN SODIUM/SULBACTAM NA 3 GM in NORMAL SALINE 100 ML IV SCH ×4 (03:53→23:07)
[2018-09-09] MEDS: LEVOTHYROXINE SODIUM 0.075 MG TABLET PO SCH (05:25)
[2018-09-09] MEDS: METHYLPREDNISOLONE INJ 125 MG/2 ML SDV IV SCH ×3 (05:25→23:08)
[2018-09-09] MEDS: LEVOTHYROXINE SODIUM 0.1 MG TABLET PO SCH (05:25)
[2018-09-09] MEDS ORDERED: (PENDING PHARMACY ID) (Levothyroxine Sodium [Synthroid] 175 MCG) PO SCH (06:00)
[2018-09-09 06:49] LABS: HEMATOCRIT 28.9 % (37.9-51.0); MEAN CORPUSCULAR HGB CONC 34.5 g/dL (32.0-36.0); MEAN CORPUSCULAR VOLUME 93 fl (80-97); PLATELET COUNT 125 10^3/uL (150-450); RED BLOOD COUNT 3.12 10^6/uL (4.35-5.55); RED CELL DISTRIBUTION WIDTH 20.4 % (11.5-14.0); WHITE BLOOD COUNT 4.5 10^3/uL (4.0-10.5)
[2018-09-09 07:02] LABS: ALANINE AMINOTRANSFERASE 14 U/L (21-72); ALBUMIN 3.2 g/dL (3.5-5.0); ALKALINE PHOSPHATASE 68 U/L (38-126); ANION GAP 12 (5-19); ASPARTATE AMINO TRANSFERASE 13 U/L (17-59); BILIRUBIN,DIRECT 0.3 mg/dL (0.0-0.4); BILIRUBIN,TOTAL 0.5 mg/dL (0.2-1.3); BLOOD UREA NITROGEN 21 mg/dL (7-20); CARBON DIOXIDE 23 mmol/L (22-30); CHLORIDE 106 mmol/L (98-107); GLUCOSE 175 mg/dL (75-110); PHOSPHORUS 3.2 mg/dL (2.5-4.5); POTASSIUM 3.9 mmol/L (3.6-5.0); SODIUM 140.8 mmol/L (137-145); TOTAL PROTEIN 6.2 g/dL (6.3-8.2)
[2018-09-09 12:41] LABS: FREE T3 2.53 pg/mL (2.77-5.27); FREE T4 (FREE THYROXINE) 2.09 ng/dL (0.78-2.19)
--- NOTE | 2018-09-09 13:00 | PDOC CONSULTATION ---
Consultation Consult Date: 09/09/18 Provider Consulted: EDWARD BRANCH Consult reason:: Hematology/Oncology consultation was request for patient currently undergoing treatment for lung cancer. History of Present Illness Admission Date/PCP: 09/08/18 10:53 DANNIELLE SAMSON PA-C History of Present Illness: MELISSA LESLIE is a 68 year old male who was diagnosed with Stage IV lung cancer Apr 2018. He underwent gamma knife radiation therapy to brain lesions and started concurrent radiation and chemo to the lung 06/2018 with carboplatin and alimta. He is also on anticoagulation for a PE. He presented with several days of swelling and tenderness over right cheek. This came on quite suddenly without any tooth or jaw pain. He was started on IV antibiotics for cellulitis and today states that he is feeling much better and swelling has decreased by about 50%. Past Medical History Cardiac Medical History: Denies: Coronary Artery Disease, Myocardial Infarction, Hypertension Pulmonary Medical History: Reports: Pneumonia Denies: Asthma, Bronchitis, Chronic Obstructive Pulmonary Disease (COPD) Neurological Medical History: Denies: Seizures Endocrine Medical History: Reports: Hyperthyroidism Malignancy Medical History: Reports: Lung Cancer Musculoskeltal Medical History: Denies: Arthritis Hematology: Denies: Anemia Past Surgical History Past Surgical History: Reports: Orthopedic Surgery - cspine fusion, Other - cleft palate repair Social History Lives with: Family Smoking Status: Former Smoker Number of Years Smokin Frequency of Alcohol Use: None Hx Recreational Drug Use: No Drugs: None Hx Prescription Drug Abuse: No - Advance Directive Resuscitation Status: Full Code Family History Family History: Reviewed & Not Pertinent Parental Family History Reviewed: Yes Children Family History Reviewed: Yes Sibling(s) Family History Reviewed.: Yes Medication/Allergy Home Medications: Amitriptyline HCl [Elavil 50 Mg Tablet] 50 mg PO QHS 09/08/18 Clindamycin HCl [Cleocin 300 mg Capsule] 300 mg PO Q8 09/08/18 Clonazepam [Klonopin 1 mg Tablet] 1 mg PO TIDP PRN 09/08/18 Folic Acid [Folvite 1 mg Tablet] 2 mg PO QHS 09/08/18 Levothyroxine Sodium [Synthroid] 175 mcg PO Q6AM 09/08/18 Rivaroxaban [Xarelto] 20 mg PO QHS 09/08/18 Allergies/Adverse Reactions: No Known Allergies Allergy (Unverified 04/30/18 10:04) Review of Systems Constitutional: ABSENT: fever(s), headache(s) Eyes: ABSENT: visual disturbances Ears: ABSENT: hearing changes Nose, Mouth, and Throat: ABSENT: sore throat Cardiovascular: ABSENT: chest pain Respiratory: ABSENT: dyspnea Gastrointestinal: ABSENT: diarrhea, nausea Genitourinary: ABSENT: dysuria Integumentary: PRESENT: as per HPI Neurological: ABSENT: abnormal speech, memory loss Hematologic/Lymphatic: ABSENT: lymphadenopathy Physical Exam Vital Signs: Temp Pulse Resp BP Pulse Ox 98.4 F 67 17 114/72 96 09/09/18 06:00 09/09/18 07:00 09/09/18 06:00 09/09/18 06:00 09/09/18 06:00 Intake & Output 09/08/18 09/09/18 09/10/18 06:59 06:59 06:59 Intake Total 1724 100 Balance 1724 100 Weight 92.7 kg General appearance: PRESENT: no acute distress, well-developed, well-nourished Head exam: PRESENT: other - Right cheek and jaw with edema. No erythema. Eye exam: PRESENT: EOMI Mouth exam: PRESENT: tongue midline Neck exam: ABSENT: lymphadenopathy, tenderness Respiratory exam: PRESENT: clear to auscultation laura, unlabored Cardiovascular exam: PRESENT: RRR GI/Abdominal exam: PRESENT: soft. ABSENT: tenderness Extremities exam: ABSENT: pedal edema Musculoskeletal exam: PRESENT: normal inspection Neurological exam: PRESENT: alert, awake, oriented to person, oriented to place, oriented to time, oriented to situation Psychiatric exam: PRESENT: appropriate affect Skin exam: PRESENT: normal color Results Laboratory Results: 09/09/18 05:00 09/09/18 05:00 09/08/18 09/08/18 09/09/18 12:40 12:40 05:00 WBC 5.9 4.5 RBC 2.96 L 3.12 L Hgb 9.3 L 10.0 L Hct 27.2 L 28.9 L MCV 92 93 MCH 31.5 32.0 MCHC 34.3 34.5 RDW 20.2 H 20.4 H Plt Count 124 L 125 L Sodium 138.3 Potassium 3.9 Chloride 104 Carbon Dioxide 25 Anion Gap 9 BUN 16 Creatinine 1.21 Est GFR ( Amer) > 60 Est GFR (Non-Af Amer) > 60 Glucose 108 Calcium 7.9 L Phosphorus 2.4 L Magnesium 1.7 Total Bilirubin 0.5 AST 13 L ALT 17 L Alkaline Phosphatase 80 Total Protein 6.3 Albumin 3.4 L TSH 09/09/18 09/09/18 05:00 05:00 WBC RBC Hgb Hct MCV MCH MCHC RDW Plt Count Sodium 140.8 Potassium 3.9 Chloride 106 Carbon Dioxide 23 Anion Gap 12 BUN 21 H Creatinine 1.07 Est GFR ( Amer) > 60 Est GFR (Non-Af Amer) > 60 Glucose 175 H Calcium 8.0 L Phosphorus 3.2 Magnesium 2.0 Total Bilirubin 0.5 AST 13 L ALT 14 L Alkaline Phosphatase 68 Total Protein 6.2 L Albumin 3.2 L TSH 0.05 L Assessment & Plan - Diagnosis (1) Lung cancer Is this a current diagnosis for this admission?: Yes Plan: Current chemotherapy on hold. (2) Periapical abscess Is this a current diagnosis for this admission?: Yes Plan: Continue current antibiotics as he seems to be responding well to these. (3) History of pulmonary embolus (PE) Is this a current diagnosis for this admission?: Yes Plan: Continue Xarelto 20 mg po daily. - Plan Summary Plan Summary: Will continue to follow with you. Please call with any concerns.
[2018-09-09] MEDS: SILVER SULFADIAZINE 1% CREAM 400 GM TP SCH ×3 (13:03→23:08)
[2018-09-09] MEDS: RIVAROXABAN 10 MG TABLET PO SCH (16:06)
--- NOTE | 2018-09-09 22:35 | PDOC PROGRESS REPORT ---
Subjective Progress Note for:: 09/09/18 Subjective:: MELISSA LESLIE is a 68 year old male with a PMH of HYPERthyroidism, lung cancer with brain mets (completed 2 cycles of chemotherapy), DVT, PE. The patient is a direct admit from Dr. Ha for right facial swelling. Found to have (+) periapical abscess, mandibular dellulitis, inflammed/enlarged parotid gland, all stemming from poor dentition. The patient was seen this afternoon on rounds. His face looks markedly better, swelling has decreased quite a bit. Will continue with current treatment plan- iv abx and steroids. Will need PO regimen of abx and steroids at discharge. Reason For Visit: FACIAL CELLULITIS Physical Exam Vital Signs: Temp Pulse Resp BP Pulse Ox 97.3 F 94 18 102/64 92 09/09/18 14:57 09/09/18 19:00 09/09/18 14:57 09/09/18 14:57 09/09/18 14:57 Intake & Output 09/08/18 09/09/18 09/10/18 06:59 06:59 06:59 Intake Total 1724 999 Balance 1724 999 Weight 92.7 kg General appearance: PRESENT: no acute distress, well-developed, well-nourished Head Image: 1 - parotid swelling Eye exam: PRESENT: PERRLA, scleral icterus Ear exam: PRESENT: normal external ear exam Mouth exam: PRESENT: dry mucosa, tongue midline Teeth exam: PRESENT: poor dentation Neck exam: PRESENT: full ROM Respiratory exam: PRESENT: chest wall tenderness, symmetrical. ABSENT: unlabored Cardiovascular exam: PRESENT: RRR Pulses: PRESENT: normal radial pulses, normal dorsalis pedis pul Vascular exam: PRESENT: normal capillary refill GI/Abdominal exam: PRESENT: normal bowel sounds, soft. ABSENT: distended Rectal exam: PRESENT: deferred Extremities exam: PRESENT: full ROM Musculoskeletal exam: PRESENT: ambulatory, full ROM Neurological exam: PRESENT: alert, awake, oriented to person, oriented to place, oriented to time, oriented to situation Psychiatric exam: PRESENT: appropriate affect Skin exam: PRESENT: dry, intact Results Laboratory Results: 09/09/18 05:00 09/09/18 05:00 09/09/18 09/09/18 09/09/18 05:00 05:00 05:00 WBC 4.5 RBC 3.12 L Hgb 10.0 L Hct 28.9 L MCV 93 MCH 32.0 MCHC 34.5 RDW 20.4 H Plt Count 125 L Sodium 140.8 Potassium 3.9 Chloride 106 Carbon Dioxide 23 Anion Gap 12 BUN 21 H Creatinine 1.07 Est GFR ( Amer) > 60 Est GFR (Non-Af Amer) > 60 Glucose 175 H Calcium 8.0 L Phosphorus 3.2 Magnesium 2.0 Total Bilirubin 0.5 AST 13 L ALT 14 L Alkaline Phosphatase 68 Total Protein 6.2 L Albumin 3.2 L TSH 0.05 L Free T4 Free T3 pg/mL 09/09/18 05:00 WBC RBC Hgb Hct MCV MCH MCHC RDW Plt Count Sodium Potassium Chloride Carbon Dioxide Anion Gap BUN Creatinine Est GFR ( Amer) Est GFR (Non-Af Amer) Glucose Calcium Phosphorus Magnesium Total Bilirubin AST ALT Alkaline Phosphatase Total Protein Albumin TSH Free T4 2.09 Free T3 pg/mL 2.53 L Assessment and Plan - Diagnosis (1) Periapical abscess Is this a current diagnosis for this admission?: Yes (2) Enlarged parotid gland Is this a current diagnosis for this admission?: Yes (3) Lung cancer Is this a current diagnosis for this admission?: Yes (4) History of pulmonary embolus (PE) Is this a current diagnosis for this admission?: Yes (5) Hyperthyroidism Is this a current diagnosis for this admission?: Yes
[2018-09-09] MEDS: FOLIC ACID 1 MG TABLET PO SCH (23:07)
[2018-09-09] MEDS: AMITRIPTYLINE HCL 50 MG TABLET PO SCH (23:07)
[2018-09-09] MEDS: CLONAZEPAM 1 MG TABLET PO PRN (23:09)
[2018-09-10] MEDS: AMPICILLIN SODIUM/SULBACTAM NA 3 GM in NORMAL SALINE 100 ML IV SCH ×2 (02:22→07:59)
[2018-09-10] MEDS: LEVOTHYROXINE SODIUM 0.1 MG TABLET PO SCH (06:03)
[2018-09-10] MEDS: LEVOTHYROXINE SODIUM 0.075 MG TABLET PO SCH (06:03)
[2018-09-10] MEDS: METHYLPREDNISOLONE INJ 125 MG/2 ML SDV IV SCH ×2 (06:03→13:04)
[2018-09-10 06:38] LABS: HEMATOCRIT 26.5 % (37.9-51.0); HEMOGLOBIN 9.3 g/dL (13.5-17.0); MEAN CORPUSCULAR HEMOGLOBIN 32.2 pg (27.0-33.4); MEAN CORPUSCULAR VOLUME 92 fl (80-97); PLATELET COUNT 134 10^3/uL (150-450); RED BLOOD COUNT 2.89 10^6/uL (4.35-5.55); RED CELL DISTRIBUTION WIDTH 20.2 % (11.5-14.0)
[2018-09-10 06:47] LABS: WHITE BLOOD COUNT 9.8 10^3/uL (4.0-10.5)
[2018-09-10 07:06] LABS: ALANINE AMINOTRANSFERASE 19 U/L (21-72); ALBUMIN 3.2 g/dL (3.5-5.0); ALKALINE PHOSPHATASE 71 U/L (38-126); ANION GAP 8 (5-19); ASPARTATE AMINO TRANSFERASE 16 U/L (17-59); BILIRUBIN,DIRECT 0.3 mg/dL (0.0-0.4); BILIRUBIN,TOTAL 0.3 mg/dL (0.2-1.3); BLOOD UREA NITROGEN 20 mg/dL (7-20); CALCIUM 8.2 mg/dL (8.4-10.2); CARBON DIOXIDE 26 mmol/L (22-30); CHLORIDE 109 mmol/L (98-107); GLUCOSE 198 mg/dL (75-110); POTASSIUM 3.9 mmol/L (3.6-5.0); SODIUM 143.3 mmol/L (137-145)
[2018-09-10 08:18] VITALS: BP 123/68
[2018-09-10] MEDS: SILVER SULFADIAZINE 1% CREAM 400 GM TP SCH ×2 (10:18→13:05)
--- NOTE | 2018-09-10 14:20 | PDOC PROGRESS REPORT ---
Subjective Progress Note for:: 09/10/18 Subjective:: Patient is feeling much better. No pain, little swelling. Anxious to go home. No new complaints. ROS: no dyspnea. Good appetite. No swallowing difficulties. Reason For Visit: FACIAL CELLULITIS Physical Exam Vital Signs: Temp Pulse Resp BP Pulse Ox 97.6 F 90 18 123/68 95 09/10/18 08:17 09/10/18 08:17 09/10/18 08:17 09/10/18 08:17 09/10/18 08:17 Intake & Output 09/09/18 09/10/18 09/11/18 06:59 06:59 06:59 Intake Total 1724 1436 100 Balance 1724 1436 100 Weight 92.7 kg 92.4 kg General appearance: PRESENT: well-developed, well-nourished Head exam: PRESENT: normocephalic, other - Jaw is less swollen. No erythema. Mouth exam: PRESENT: tongue midline Neck exam: ABSENT: lymphadenopathy, tenderness Respiratory exam: PRESENT: unlabored Neurological exam: PRESENT: alert, awake Psychiatric exam: PRESENT: appropriate affect Skin exam: PRESENT: normal color Results Laboratory Results: 09/10/18 05:15 09/10/18 05:15 09/10/18 09/10/18 05:15 05:15 WBC 9.8 D RBC 2.89 L Hgb 9.3 L Hct 26.5 L MCV 92 MCH 32.2 MCHC 35.0 RDW 20.2 H Plt Count 134 L Sodium 143.3 Potassium 3.9 Chloride 109 H Carbon Dioxide 26 Anion Gap 8 BUN 20 Creatinine 0.91 Est GFR ( Amer) > 60 Est GFR (Non-Af Amer) > 60 Glucose 198 H Calcium 8.2 L Total Bilirubin 0.3 AST 16 L ALT 19 L Alkaline Phosphatase 71 Total Protein 6.0 L Albumin 3.2 L Assessment & Plan - Diagnosis (1) Lung cancer Is this a current diagnosis for this admission?: Yes (2) Periapical abscess Is this a current diagnosis for this admission?: Yes Plan: Change to PO antibiotics and OK for discharge home from my standpoint. We will follow in the office. (3) History of pulmonary embolus (PE) Is this a current diagnosis for this admission?: Yes
== END 2018-09-10 15:35 | disposition home or self-care (01) | DRG 158 ==
LOC: 4N 10:53
PROVIDERS: ADMIT Internal Medicine; ATTEND Internal Medicine
DX: K04.7 Periapical abscess without sinus (principal); C34.90 Malignant neoplasm of unspecified part of unspecified bronchus or lung; C79.31 Secondary malignant neoplasm of brain; L03.211 Cellulitis of face; J35.3 Hypertrophy of tonsils with hypertrophy of adenoids; K11.1 Hypertrophy of salivary gland; E05.90 Thyrotoxicosis, unspecified without thyrotoxic crisis or storm; Z86.718 Personal history of other venous thrombosis and embolism; Z79.01 Long term (current) use of anticoagulants; Z86.711 Personal history of pulmonary embolism
CPT/HCPCS: 36415; 80053; 83735; 84100; 84439; 84443; 84481; 85027; J0295; J1642; J2930; J3490; J7050

== ENCOUNTER → 2018-10-01 | Outpatient (CLI) | payer MEDICARE, BC ==
--- NOTE | 2018-10-01 10:49 | RADIOLOGY REPORT (SQ) ---
EXAM DESCRIPTION: CT CHEST WITH; CT ABD/PELVIS WITH IV ONLY COMPLETED DATE/TIME: 10/01/2018 9:25 am REASON FOR STUDY: MALIGNANT NEOPLASM OF UPPER LOBE, LEFT BRONCHUS OR LUNG C34.12 MALIGNANT NEOPLASM OF UPPER LOBE, LEFT BRONCHUS OR JESS COMPARISON: CT chest 07/14/2018, 04/30/2018 PET-CT 04/28/2018 CONTRAST TYPE AND DOSE: contrast/concentration: Isovue 350.00 mg/ml; Total Contrast Delivered: 100.0 ml; Total Saline Delivered: 28.8 ml RENAL FUNCTION: Creatinine 0.9 TECHNIQUE: CT scan of the chest performed using helical scanning technique with dynamic intravenous contrast injection. Images reviewed with lung, soft tissue and bone windows. Reconstructed coronal a nd sagittal MPR images reviewed. All images stored on PACS. CT scan of the abdomen and pelvis performed with intravenous and with oral contrastusing helical scan genet technique with dynamic intravenous contrast injection. Images reviewed with lung, soft tissue a nd bone windows. Reconstructed coronal and sagittal MPR images reviewed. Delayed images for evaluat ion of the urinary system also acquired and evaluated. All images stored on PACS. All CT scanners at this facility use dose modulation, iterative reconstruction, and/or weight based d osing when appropriate to reduce radiation dose to as low as reasonably achievable (ALARA). [facility]: Dose Right [facility]: CareDose [facility]: Dose Right [facility]: Teradose 4D [facility]: Smart Technologies RADIATION DOSE: CT Rad equipment meets quality standard of care and radiation dose reduction techniq ues were employed. CTDIvol: 11.6 - 15.8 mGy. DLP: 1809 mGy-cm. . LIMITATIONS: None. FINDINGS: CHEST: LUNGS AND PLEURA: Primary lung mass in the posterior aspect left upper lobe of the major fissure is n ow 2.8 x 1.1 cm in size (was 3.2 x 3 cm in size on 07/14/2018 CT chest). Remainder of the lungs are otherwise unremarkable aside from obstructive disease in the upper lobes. No pleural effusion or pneumothorax. No acute infiltrates. HILAR AND MEDIASTINAL STRUCTURES: No identified masses or abnormal nodes. HEART AND VASCULAR STRUCTURES: No aneurysm or dissection. No central pulmonary emboli. No pericardi al effusion. Calcified coronary arteries HARDWARE: Right-sided permanent central line tip superior vena cava THYROID AND OTHER SOFT TISSUES: Bilateral gynecomastia. Thyroid unremarkable BONES: No significant finding. OTHER: No other significant finding. ABDOMEN AND PELVIS: LIVER: Normal size. No masses. No dilated ducts. SPLEEN: Normal size. No focal lesions. PANCREAS: No masses. No significant calcifications. No adjacent inflammation or peripancreatic fluid collections. Pancreatic duct not dilated. GALLBLADDER: No identified stones by CT criteria. No inflammatory changes to suggest cholecystitis. ADRENAL GLANDS: No significant masses or asymmetry. RIGHT KIDNEY AND URETER: No solid masses. Less than 1 cm cyst right lower pole kidney. No significa nt calcification. No hydronephrosis or hydroureter. LEFT KIDNEY AND URETER: No solid masses. No significant calcification. No hydronephrosis or hydrouret er. AORTA AND VESSELS: No aneurysm. No dissection. Renal arteries, SMA, celiac without stenosis. RETROPERITONEUM: No retroperitoneal adenopathy, hemorrhage or masses. BOWEL AND PERITONEAL CAVITY: Patient drank oral contrast. No CT evidence of bowel obstruction or shahana e intraperitoneal air or fluid. Colonic diverticulosis without CT signs of acute diverticulitis APPENDIX: Normal. ABDOMINAL WALL: No masses. Fatty bilateral inguinal hernias. PELVIS: No mass or free fluid. Normal bladder. BONES: No significant or acute findings. OTHER: No other significant finding. IMPRESSION: Decrease in size of posterior left upper lobe primary mass. No CT evidence of metastatic disease over the chest abdomen or pelvis NORMAL CT OF THE ABDOMEN AND PELVIS WITH ORAL AND INTRAVENOUS CONTRAST. TECHNICAL DOCUMENTATION: JOB ID: [id number] Quality ID # [id number]: Final reports with documentation of one or more dose reduction techniques (e.g., Au tomated exposure control, adjustment of the mA and/or kV according to patient size, use of iterative reconstruction technique) 2010 [email or web address]- All Rights Reserved Reading location - IP/workstation name: [email or web address]
--- NOTE | 2018-10-01 12:26 | RADIOLOGY REPORT (SQ) ---
EXAM DESCRIPTION: MRI HEAD COMBO COMPLETED DATE/TIME: 10/01/2018 9:48 am REASON FOR STUDY: MALIGNANT NEOPLASM OF UPPER LOBE, LEFT BRONCHUS OR LUNG C34.12 MALIGNANT NEOPLASM OF UPPER LOBE, LEFT BRONCHUS OR JESS COMPARISON: MRI brain 05/05/2018 PET-CT 04/28/2018 TECHNIQUE: Multiplanar imaging includes noncontrasted T1, T2, FLAIR, diffusion with ADC map and post gadolinium contrast T1 sequences. Images stored on PACS. CONTRAST TYPE AND DOSE: 15 mL Dotarem. RENAL FUNCTION: Not indicated. ACR Type II contrast agent associated with few, if any, unconfounded cases of NSF LIMITATIONS: None. FINDINGS: ANATOMY: No developmental anomalies. Normal vascular flow voids. Pituitary fossa normal. CSF SPACES: Normal in size and contour. No hemorrhage. CEREBRUM: Sulci and gyri normal in size and contour. Minimal spotty increased bifrontal white matter signal on FLAIR imaging. No evidence of hemorrhage, mass, or extraaxial fluid collection. No abnorma l enhancement post contrast. POSTERIOR FOSSA: No signal alteration. No hemorrhage. No edema, masses, or mass effect. Internal kvng tory canals, cerebellopontine angles, mastoids normal. No enhancing lesions. No abnormal enhancement post contrast. DIFFUSION IMAGING: Negative for acute or subacute infarction. ORBITS: No masses. Globes normal. PARANASAL SINUSES: Minimal mucous membrane thickening and fluid right sphenoid sinus. OTHER: No other significant finding. IMPRESSION: ESSENTIALLY NORMAL FOR AGE %period%MRI OF THE BRAIN WITHOUT AND WITH INTRAVENOUS GADOLIN IUM CONTRAST. EVIDENCE OF ACUTE STROKE: NO. TECHNICAL DOCUMENTATION: JOB ID: [id number] [email or web address] All Rights Reserved Reading location - IP/workstation name: [email or web address]
== END ==
LOC: RAD 08:38
PROVIDERS: ATTEND Internal Medicine
DX: C34.12 Malignant neoplasm of upper lobe, left bronchus or lung (principal)
CPT/HCPCS: 70553; 71260; 74177; A9576

== ENCOUNTER → 2018-11-29 | Outpatient (CLI) | payer MEDICARE, BC ==
--- NOTE | 2018-11-30 09:04 | RADIOLOGY REPORT (SQ) ---
EXAM DESCRIPTION: PET CT SKULL/THIGH COMPLETED DATE/TIME: 11/29/2018 9:47 pm REASON FOR STUDY: (C34.12)MALIGNANT NEOPLASM OF UPPER LOBE, LEFT BRONCHUS OR LUNG C34.12 MALIGNANT NEOPLASM OF UPPER LOBE, LEFT BRONCHUS OR JESS COMPARISON: 04/28/2018 RADIONUCLIDE AND DOSE: 10.3 mCi F18 FDG The route of agent administration: Intravenous FASTING BLOOD SUGAR: 117 mg/dl CONTRAST TYPE AND DOSE: No CT contrast given. TECHNIQUE: Blood glucose level was verified. Above dose of FDG was injected intravenously. 2-D seg mented attenuation correction images were obtained from the base of the skull to the midthighs. Nonc ontrast CT images were obtained for attenuation correction and fusion with emission images. CT image s were performed without oral or intravenous contrast and are not sensitive for parenchymal lesions. A series of overlapping emission PET images were obtained. Images reviewed and manipulated at [facility] work station by the radiologist. Images stored on PACS. LIMITATIONS: None. FINDINGS: HEAD AND NECK: No areas of abnormal metabolic activity in the soft tissues of the head and neck. CHEST: Left upper lobe mass measures 1.3 x 2.7 cm and 2.5 SUV. ABDOMEN AND PELVIS: No areas of abnormal metabolic activity in the abdomen or pelvis. Expected physi ologic activity is present in the genitourinary system and bowel. PROXIMAL LOWER EXTREMITIES: No areas of abnormal metabolic activity in the soft tissues of the lower extremities. BONES: No abnormal metabolic activity in the visualized skeleton. ADDITIONAL CT FINDINGS: Small left pleural effusion. Right side port. 3.0 cm abdominal aorta. No s ignificant change. OTHER: Blood pool 1.6 SUV. Liver background 2.6 SUV. IMPRESSION: Excellent response to therapy of left upper lobe mass and left hilar adenopathy. TECHNICAL DOCUMENTATION: JOB ID: [id number] [employer]- All Rights Reserved Reading location - IP/workstation name: [email or web address]
== END ==
LOC: RAD 15:15
PROVIDERS: ATTEND Physician Assistant Medical
DX: C34.12 Malignant neoplasm of upper lobe, left bronchus or lung (principal)
CPT/HCPCS: 78815; A9552

== ENCOUNTER → 2019-03-03 | Outpatient (CLI) | payer MEDICARE, BC ==
--- NOTE | 2019-03-03 14:59 | RADIOLOGY REPORT (SQ) ---
EXAM DESCRIPTION: CT ABD/PELVIS WITH IV ONLY; CT CHEST WITH COMPLETED DATE/TIME: 03/03/2019 8:46 am; 03/03/2019 8:44 am REASON FOR STUDY: LUNG CA C34.2 MALIGNANT NEOPLASM OF MIDDLE LOBE, BRONCHUS OR LUNG COMPARISON: PET-CT 11/29/2018, 04/28/2018 CT chest abdomen pelvis 10/01/2018 CT chest 07/14/2018, 04/30/2018 CONTRAST TYPE AND DOSE: contrast/concentration: Isovue 350.00 mg/ml; Total Contrast Delivered: 100.0 ml; Total Saline Delivered: 72.0 ml RENAL FUNCTION: Creatinine 1.3 TECHNIQUE: CT scan of the chest performed using helical scanning technique with dynamic intravenous contrast injection. Images reviewed with lung, soft tissue and bone windows. Reconstructed coronal a nd sagittal MPR images reviewed. All images stored on PACS. CT scan of the abdomen and pelvis performed with intravenous and without oral contrastusing helical s radha technique with dynamic intravenous contrast injection. Images reviewed with lung, soft tissu e and bone windows. Reconstructed coronal and sagittal MPR images reviewed. Delayed images for eval uation of the urinary system also acquired and evaluated. All images stored on PACS. All CT scanners at this facility use dose modulation, iterative reconstruction, and/or weight based d osing when appropriate to reduce radiation dose to as low as reasonably achievable (ALARA). [facility]: Dose Right [facility]: CareDose [facility]: Dose Right [facility]: Teradose 4D [facility]: [employer] RADIATION DOSE: CT Rad equipment meets quality standard of care and radiation dose reduction techniq ues were employed. CTDIvol: 6.8 - 7.9 mGy. DLP: 1235 mGy-cm. . LIMITATIONS: None. FINDINGS: CHEST: LUNGS AND PLEURA: The right lung is well inflated and free of focal infiltrates. No pulmonary nodule s. Small bulla or bleb along the medial right lung apex. On the left side, a small to moderate left pleural effusion persists, similar compared to the 11/30/19 CT chest. There is new lung parenchymal volume loss and consolidation with bronchiectasis along the left perihi lar region, which obscures the mass along the upper edge of the major fissure. Primary lung mass is difficult to measure on today's study. HILAR AND MEDIASTINAL STRUCTURES: No identified masses or abnormal nodes. HEART AND VASCULAR STRUCTURES: No aneurysm or dissection. No central pulmonary emboli. No pericardi al effusion. Heavy calcified left coronary arteries HARDWARE: None. THYROID AND OTHER SOFT TISSUES: No masses. No adenopathy. BONES: No significant finding. OTHER: No other significant finding. ABDOMEN AND PELVIS: LIVER: Normal size. No masses. No dilated ducts. SPLEEN: Normal size. No focal lesions. PANCREAS: No masses. No significant calcifications. No adjacent inflammation or peripancreatic fluid collections. Pancreatic duct not dilated. GALLBLADDER: No identified stones by CT criteria. No inflammatory changes to suggest cholecystitis. ADRENAL GLANDS: No significant masses or asymmetry. RIGHT KIDNEY AND URETER: No solid masses. No significant calcification. No hydronephrosis or hydroure ter. LEFT KIDNEY AND URETER: No solid masses. No significant calcification. No hydronephrosis or hydrouret er. AORTA AND VESSELS: Ectasia infrarenal abdominal aorta with ulcerated plaque, best shown on axial imag e 49/106, with the infrarenal abdominal aorta measuring 3.3 x 3.2 cm in greatest transverse diameter. No dissection. Renal arteries, SMA, celiac without stenosis. RETROPERITONEUM: No retroperitoneal adenopathy, hemorrhage or masses. BOWEL AND PERITONEAL CAVITY: No masses or inflammatory changes. No free fluid or peritoneal masses. Left colon diverticuli without CT signs of acute diverticulitis APPENDIX: Normal. ABDOMINAL WALL: No masses. No hernias. PELVIS: No mass or free fluid. Normal bladder. BONES: No significant or acute findings. OTHER: No other significant finding. IMPRESSION: Persistent small to moderate pleural effusion left chest similar compared to PET-CT 11/29 Post radiation therapy changes in the left lung with volume loss and consolidation in the left perihi lar region. This obscures the regional mass along the upper edge of the left major fissure. No metastatic disease to the abdomen or pelvis. TECHNICAL DOCUMENTATION: JOB ID: [id number] Quality ID # [id number]: Final reports with documentation of one or more dose reduction techniques (e.g., Au tomated exposure control, adjustment of the mA and/or kV according to patient size, use of iterative reconstruction technique) 2010 [employer]- All Rights Reserved Reading location - IP/workstation name: [facility]
== END ==
LOC: RAD 08:22
PROVIDERS: ATTEND Internal Medicine
DX: C34.2 Malignant neoplasm of middle lobe, bronchus or lung (principal)
CPT/HCPCS: 71260; 74177

== ENCOUNTER → 2019-05-28 | Outpatient (CLI) | payer MEDICARE, BC ==
--- NOTE | 2019-05-28 09:10 | RADIOLOGY REPORT (SQ) ---
EXAM DESCRIPTION: CT CHEST WITH COMPLETED DATE/TIME: 05/28/2019 8:17 am REASON FOR STUDY: LUNG CANCER (C34.12) C34.12 MALIGNANT NEOPLASM OF UPPER LOBE, LEFT BRONCHUS OR JESS COMPARISON: CT of the chest with contrast from 03/03/2019. TECHNIQUE: CT scan of the chest performed using helical scanning technique with dynamic intravenous contrast injection. Images reviewed with lung, soft tissue and bone windows. Reconstructed coronal and sagittal MPR and MIP images reviewed. All images stored on PACS. All CT scanners at this facility use dose modulation, iterative reconstruction, and/or weight based d osing when appropriate to reduce radiation dose to as low as reasonably achievable (ALARA). [facility]: Dose Right [facility]: CareDose [facility]: Dose Right [facility]: Teradose 4D [facility]: [employer] CONTRAST TYPE AND DOSE: 100 mL Omnipaque 350- low osmolar. RENAL FUNCTION: Creatinine 1.1 milligrams/deciliter LIMITATIONS: None. FINDINGS: LUNGS AND PLEURA: The trachea and main bronchi are patent. On the right there is re- demo nstration of subpleural bullae along the medial aspect of the right apex. There is no consolidation, pleural effusion, nodule or mass. On the left the amount of fluid within the pleural space is unchanged, however there air-fluid levels are noted within the loculated pleural fluid collection along the medial aspect of the left apex and in the dominant pleural fluid collection in the lateral left hemithorax (images 9 and 16 of series 2 ). The areas of consolidation associated with volume loss and bronchiectasis in the perihilar region s of the left upper and lower lobes are unchanged; the consolidations are indistinguishable from the mass along the upper edge of the interlobar fissure. HILAR AND MEDIASTINAL STRUCTURES: No adenopathy or mass. HEART AND VASCULAR STRUCTURES: No thoracic aortic dissection or aneurysm. There is atherosclerotic c alcification of the coronary arteries. There is no cardiomegaly or pericardial effusion. HARDWARE: The tip of the single-lumen right IJ port terminates within the SVC. UPPER ABDOMEN: Refer to the separate report of the CT of the abdomen. THYROID AND OTHER SOFT TISSUES: No masses or adenopathy BONES: No acute findings. OTHER: No other finding. IMPRESSION: 1. New hydropneumothorax on the left - of note, the overall amount of fluid within the left pleural space is unchanged. 2. Stable areas of consolidation associated with volume loss and bronchiectasis in the perihilar reg ions of the left upper and lower lobes. The consolidations are indistinguishable from the mass along the upper edge of the interlobar fissure. TECHNICAL DOCUMENTATION: JOB ID: [id number] Quality ID # [id number]: Final reports with documentation of one or more dose reduction techniques (e.g., Au tomated exposure control, adjustment of the mA and/or kV according to patient size, use of iterative reconstruction technique) 2010 [employer]- All Rights Reserved Reading location - IP/workstation name: [facility]-
--- NOTE | 2019-05-28 09:27 | RADIOLOGY REPORT (SQ) ---
EXAM DESCRIPTION: CT ABD/PELVIS WITH IV ONLY COMPLETED DATE/TIME: 05/28/2019 8:01 am REASON FOR STUDY: LUNG CANCER (C34.12) C34.12 MALIGNANT NEOPLASM OF UPPER LOBE, LEFT BRONCHUS OR JESS COMPARISON: None. TECHNIQUE: CT scan of the abdomen and pelvis performed using helical scanning technique with dynamic intravenous contrast injection. No oral contrast. Images reviewed with lung, soft tissue, and bone windows. Reconstructed coronal and sagittal MPR images reviewed. Delayed images for evaluation of the urinary system also acquired. All images stored on PACS. All CT scanners at this facility use dose modulation, iterative reconstruction, and/or weight based d osing when appropriate to reduce radiation dose to as low as reasonably achievable (ALARA). [facility]: Dose Right [facility]: CareDose [facility]: Dose Right [facility]: Teradose 4D [facility]: [employer] CONTRAST TYPE AND DOSE: Contrast/concentration: Isovue 350.00 mg/ml; Total Contrast Delivered: 100.0 ml; Total Saline Delivered: 72.0 ml RENAL FUNCTION: Creatinine 1.1 milligrams/deciliter. RADIATION DOSE: CT Rad equipment meets quality standard of care and radiation dose reduction techniq ues were employed. CTDIvol: 6.0 - 8.2 mGy. DLP: 1149 mGy-cm.. LIMITATIONS: None. FINDINGS: LOWER CHEST: Refer to the separate report of the CT of the chest. LIVER: The relative hypoattenuation of the hepatic parenchyma compared to the splenic parenchyma on t he portal venous phase is suggestive of hepatic steatosis. The portal veins are patent. There is no hepatic mass. SPLEEN: 2 cm accessory splenule. There is no splenomegaly or splenic mass. PANCREAS: No abnormality of the pancreas. GALLBLADDER: No abnormality that is apparent on CT. ADRENAL GLANDS: No mass or asymmetry. RIGHT KIDNEY AND URETER: No solid masses. No calcifications. No hydronephrosis or hydroureter. LEFT KIDNEY AND URETER: No solid masses. No calcifications. No hydronephrosis or hydroureter. 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 RETROPERITONEUM: No retroperitoneal adenopathy, hemorrhage or mass. BOWEL AND PERITONEAL CAVITY: Colonic diverticulosis without diverticulitis. There is no bowel obstru ction, bowel wall thickening or pericolonic/ perienteric inflammation. There is no mesenteric adenop athy, free intraperitoneal fluid or mesenteric/ omental inflammation. APPENDIX: Normal. PELVIS: Prostatomegaly. The urinary bladder is partially distended ABDOMINAL WALL: Fat containing right inguinal hernia. BONES: No acute findings. OTHER: No other finding. IMPRESSION: No acute intra-abdominal abnormality. TECHNICAL DOCUMENTATION: JOB ID: [id number] Quality ID # [id number]: Final reports with documentation of one or more dose reduction techniques (e.g., Au tomated exposure control, adjustment of the mA and/or kV according to patient size, use of iterative reconstruction technique) 2010 [employer]- All Rights Reserved Reading location - IP/workstation name: [email or web address]
== END ==
LOC: RAD 07:13
PROVIDERS: ATTEND Internal Medicine
DX: C34.12 Malignant neoplasm of upper lobe, left bronchus or lung (principal)
CPT/HCPCS: 71260; 74177; 82565

== ENCOUNTER → 2019-08-17 | Outpatient (CLI) | payer MEDICARE, BC ==
--- NOTE | 2019-08-17 14:02 | RADIOLOGY REPORT (SQ) ---
EXAM DESCRIPTION: PET CT SKULL/THIGH IMAGES COMPLETED DATE/TIME: 08/17/2019 10:47 am REASON FOR STUDY: MALIGNANT NEOPLASM OF UPPER LOBE, LEFT BRONCHUS OR LUNG C34.12 MALIGNANT NEOPLASM OF UPPER LOBE, LEFT BRONCHUS OR JESS COMPARISON: CT CHEST ABDOMEN PELVIS 05/28/2019 PET-CT 18 19, 04/28/2018 RADIONUCLIDE AND DOSE: 10.1 mCi mCi F18 FDG The route of agent administration: Intravenous FASTING BLOOD SUGAR: 115 mg/dl CONTRAST TYPE AND DOSE: No CT contrast given. TECHNIQUE: Blood glucose level was verified. Above dose of FDG was injected intravenously. 2-D seg mented attenuation correction images were obtained from the base of the skull to the midthighs. Nonc ontrast CT images were obtained for attenuation correction and fusion with emission images. CT image s were performed without oral or intravenous contrast and are not sensitive for parenchymal lesions. A series of overlapping emission PET images were obtained. Images reviewed and manipulated at [facility] [employer] work station by the radiologist. Images stored on PACS. LIMITATIONS: None. FINDINGS: HEAD AND NECK: No areas of abnormal metabolic activity in the soft tissues of the head and neck. CHEST: A small loculated left pleural effusion is present, similar compared to CT exam 05/28/2019 Post treatment changes are present in the left hemithorax with consolidation and volume loss in the l eft perihilar region, likely post radiation change. This area of consolidation has SUV of 2.9 (live r background 2.4 SUV). ABDOMEN AND PELVIS: No areas of abnormal metabolic activity in the abdomen or pelvis. Expected physi ologic activity is present in the genitourinary system and bowel. PROXIMAL LOWER EXTREMITIES: No areas of abnormal metabolic activity in the soft tissues of the lower extremities. BONES: No abnormal metabolic activity in the visualized skeleton. ADDITIONAL CT FINDINGS: Right-sided permanent central line tip superior vena cava. Mild gynecomastia . Lower cervical fusion hardware. 3 cm infrarenal abdominal aorta. Colonic diverticulosis OTHER: Liver background activity 2.4 SUV. Blood pool background activity 1.7 SUV IMPRESSION: Stable post treatment changes in the left chest. No PET-CT evidence of widespread metastatic disease TECHNICAL DOCUMENTATION: JOB ID: [id number] [employer]- All Rights Reserved Reading location - IP/workstation name: [id number]
== END ==
LOC: RAD 08:09
PROVIDERS: ATTEND Internal Medicine
DX: C34.11 Malignant neoplasm of upper lobe, right bronchus or lung (principal); I71.4 Abdominal aortic aneurysm, without rupture; K57.30 Diverticulosis of large intestine without perforation or abscess without bleeding
CPT/HCPCS: 78815; A9552

== ENCOUNTER → 2019-11-26 | Outpatient (CLI) | payer MEDICARE, BC ==
--- NOTE | 2019-11-26 09:25 | RADIOLOGY REPORT (SQ) ---
EXAM DESCRIPTION: CT CHEST WITH; CT ABD/PELVIS WITH IV ONLY IMAGES COMPLETED DATE/TIME: 11/26/2019 8:57 am REASON FOR STUDY: MALIGNANT NEOPLASM OF UPPER LOBE, LEFT BRONCHUS OR LUNG C34.12 MALIGNANT NEOPLASM OF UPPER LOBE, LEFT BRONCHUS OR JESS C79.31 SECONDARY MALIGNANT NEOPLASM OF BRAIN CONTRAST TYPE AND DOSE: contrast/concentration: Isovue 350.00 mmol/ml; Total Contrast Delivered: 98. 0 ml; Total Saline Delivered: 69.0 ml RENAL FUNCTION: Creatinine 1.3 COMPARISON: 05/28/2019 TECHNIQUE: CT scan of the chest performed using helical scanning technique with dynamic intravenous contrast injection. Images reviewed with lung, soft tissue and bone windows. Reconstructed coronal a nd sagittal MPR images reviewed. All images stored on PACS. All CT scanners at this facility use dose modulation, iterative reconstruction, and/or weight based d osing when appropriate to reduce radiation dose to as low as reasonably achievable (ALARA). [facility]: Dose Right [facility]: CareDose [facility]: Dose Right [facility]: Teradose 4D [facility]: Smart [employer] RADIATION DOSE: CT Rad equipment meets quality standard of care and radiation dose reduction techniq ues were employed. CTDIvol: 6.1 - 7.9 mGy. DLP: 1126 mGy-cm. . LIMITATIONS: None. FINDINGS: AXILLAE: No adenopathy. CHEST WALL: Symmetric subcutaneous nodules in the breast most likely representing gynecomastia. LUNGS: The mass and consolidation are again indistinguishable from each other emphysematous changes n oted with subpleural blebs. . There does appear to be more soft tissue attenuation along the major fissure. Increasing tumor burden cannot be excluded. PLEURA: Persistent left-sided hydropneumothorax with perihilar consolidation. Size of the effusion i s slightly smaller when compared to prior study. THYROID: No masses or significant asymmetry. HILAR AND MEDIASTINAL STRUCTURES: No identified masses or abnormal nodes. Shift of mediastinum towar d the left consistent with volume loss. AORTA AND GREAT VESSELS: No aneurysm. No dissection. PULMONARY ARTERIES: No identified pulmonary emboli. Study not optimized for the pulmonary arteries. HEART: No pericardial effusion. HARDWARE AND LIFELINES: [id number]-[id number] is in place. BONES: No significant finding. OTHER: No other significant finding. IMPRESSION: Subtle increase in soft tissue attenuation just anterior to the left major fissure in th e upper lobe. Increasing tumor burden cannot be excluded. Slight decrease in size of the left pleur al effusion. No other significant interval change. COMPARISON: None. RADIATION DOSE: CT Rad equipment meets quality standard of care and radiation dose reduction techniq ues were employed. CTDIvol: 6.1 - 7.9 mGy. DLP: 1126 mGy-cm. mGy. TECHNIQUE: CT scan of the abdomen and pelvis performed with intravenous and oral contrast using christopher azam scanning technique with dynamic intravenous contrast injection. Images reviewed with lung, soft tissue and bone windows. Reconstructed coronal and sagittal MPR images reviewed. Delayed images for evaluation of the urinary system also acquired and evaluated. All images stored on PACS. All CT scanners at this facility use dose modulation, iterative reconstruction, and/or weight based d osing when appropriate to reduce radiation dose to as low as reasonably achievable (ALARA). [facility]: Dose Right [facility]: [employer] [facility]: Dose Right [facility]: Teradose 4D [facility]: [employer] FINDINGS: LIVER: Normal size. No masses. No dilated ducts. SPLEEN: Stable in appearance. Excess re- splenule is again noted. PANCREAS: No masses. No significant calcifications. No adjacent inflammation or peripancreatic flui d collections. Pancreatic duct not dilated. GALLBLADDER: No identified stones by CT criteria. No inflammatory changes to suggest cholecystitis. ADRENAL GLANDS: No significant masses or asymmetry. RIGHT KIDNEY AND URETER: No solid masses. Stable small cortical cysts. No significant calcificatio ns. No hydronephrosis or hydroureter. LEFT KIDNEY AND URETER: No solid masses. No significant calcifications. No hydronephrosis or hydr oureter. AORTA AND VESSELS: Atherosclerotic change with stable 3.0 x 3.3 cm infrarenal abdominal aortic aneury sm. RETROPERITONEUM: No retroperitoneal adenopathy, hemorrhage or masses. LARGE AND SMALL BOWEL: Scattered diverticuli. No acute diverticulitis. APPENDIX: Normal. ABDOMINAL WALL: No hernia or masses. PERITONEAL CAVITY: No free air. No free fluid. No peritoneal implants or masses. PELVIS: No mass or free fluid. Normal bladder. BONES: No significant or acute findings. OTHER: No other significant finding. IMPRESSION: No evidence of metastatic disease in the abdomen or pelvis. Stable 3.0 x 3.3 cm infrare nal abdominal aortic aneurysm. TECHNICAL DOCUMENTATION: JOB ID: [id number] Quality ID # [id number]: Final reports with documentation of one or more dose reduction techniques (e.g., Au tomated exposure control, adjustment of the mA and/or kV according to patient size, use of iterative reconstruction technique) 2010 [employer]- All Rights Reserved Reading location - IP/workstation name: [email or web address]
--- NOTE | 2019-11-26 09:25 | RADIOLOGY REPORT (SQ) ---
EXAM DESCRIPTION: CT CHEST WITH; CT ABD/PELVIS WITH IV ONLY IMAGES COMPLETED DATE/TIME: 11/26/2019 8:57 am REASON FOR STUDY: MALIGNANT NEOPLASM OF UPPER LOBE, LEFT BRONCHUS OR LUNG C34.12 MALIGNANT NEOPLASM OF UPPER LOBE, LEFT BRONCHUS OR JESS C79.31 SECONDARY MALIGNANT NEOPLASM OF BRAIN CONTRAST TYPE AND DOSE: contrast/concentration: Isovue 350.00 mmol/ml; Total Contrast Delivered: 98. 0 ml; Total Saline Delivered: 69.0 ml RENAL FUNCTION: Creatinine 1.3 COMPARISON: 05/28/2019 TECHNIQUE: CT scan of the chest performed using helical scanning technique with dynamic intravenous contrast injection. Images reviewed with lung, soft tissue and bone windows. Reconstructed coronal a nd sagittal MPR images reviewed. All images stored on PACS. All CT scanners at this facility use dose modulation, iterative reconstruction, and/or weight based d osing when appropriate to reduce radiation dose to as low as reasonably achievable (ALARA). [facility]: Dose Right [facility]: CareDose [facility]: Dose Right [facility]: Teradose 4D [facility]: [employer] [place] RADIATION DOSE: CT Rad equipment meets quality standard of care and radiation dose reduction techniq ues were employed. CTDIvol: 6.1 - 7.9 mGy. DLP: 1126 mGy-cm. . LIMITATIONS: None. FINDINGS: AXILLAE: No adenopathy. CHEST WALL: Symmetric subcutaneous nodules in the breast most likely representing gynecomastia. LUNGS: The mass and consolidation are again indistinguishable from each other emphysematous changes n oted with subpleural blebs. . There does appear to be more soft tissue attenuation along the major fissure. Increasing tumor burden cannot be excluded. PLEURA: Persistent left-sided hydropneumothorax with perihilar consolidation. Size of the effusion i s slightly smaller when compared to prior study. THYROID: No masses or significant asymmetry. HILAR AND MEDIASTINAL STRUCTURES: No identified masses or abnormal nodes. Shift of mediastinum towar d the left consistent with volume loss. AORTA AND GREAT VESSELS: No aneurysm. No dissection. PULMONARY ARTERIES: No identified pulmonary emboli. Study not optimized for the pulmonary arteries. HEART: No pericardial effusion. HARDWARE AND LIFELINES: Joreyz-[id number]-[id number] is in place. BONES: No significant finding. OTHER: No other significant finding. IMPRESSION: Subtle increase in soft tissue attenuation just anterior to the left major fissure in th e upper lobe. Increasing tumor burden cannot be excluded. Slight decrease in size of the left pleur al effusion. No other significant interval change. COMPARISON: None. RADIATION DOSE: CT Rad equipment meets quality standard of care and radiation dose reduction techniq ues were employed. CTDIvol: 6.1 - 7.9 mGy. DLP: 1126 mGy-cm. mGy. TECHNIQUE: CT scan of the abdomen and pelvis performed with intravenous and oral contrast using christopher azam scanning technique with dynamic intravenous contrast injection. Images reviewed with lung, soft tissue and bone windows. Reconstructed coronal and sagittal MPR images reviewed. Delayed images for evaluation of the urinary system also acquired and evaluated. All images stored on PACS. All CT scanners at this facility use dose modulation, iterative reconstruction, and/or weight based d osing when appropriate to reduce radiation dose to as low as reasonably achievable (ALARA). [facility]: Dose Right [facility]: [employer]Care [facility]: Dose Right [facility]: Teradose 4D [facility]: Kasumi[employer]sou FINDINGS: LIVER: Normal size. No masses. No dilated ducts. SPLEEN: Stable in appearance. Excess re- splenule is again noted. PANCREAS: No masses. No significant calcifications. No adjacent inflammation or peripancreatic flui d collections. Pancreatic duct not dilated. GALLBLADDER: No identified stones by CT criteria. No inflammatory changes to suggest cholecystitis. ADRENAL GLANDS: No significant masses or asymmetry. RIGHT KIDNEY AND URETER: No solid masses. Stable small cortical cysts. No significant calcificatio ns. No hydronephrosis or hydroureter. LEFT KIDNEY AND URETER: No solid masses. No significant calcifications. No hydronephrosis or hydr oureter. AORTA AND VESSELS: Atherosclerotic change with stable 3.0 x 3.3 cm infrarenal abdominal aortic aneury sm. RETROPERITONEUM: No retroperitoneal adenopathy, hemorrhage or masses. LARGE AND SMALL BOWEL: Scattered diverticuli. No acute diverticulitis. APPENDIX: Normal. ABDOMINAL WALL: No hernia or masses. PERITONEAL CAVITY: No free air. No free fluid. No peritoneal implants or masses. PELVIS: No mass or free fluid. Normal bladder. BONES: No significant or acute findings. OTHER: No other significant finding. IMPRESSION: No evidence of metastatic disease in the abdomen or pelvis. Stable 3.0 x 3.3 cm infrare nal abdominal aortic aneurysm. TECHNICAL DOCUMENTATION: JOB ID: [id number] Quality ID # [id number]: Final reports with documentation of one or more dose reduction techniques (e.g., Au tomated exposure control, adjustment of the mA and/or kV according to patient size, use of iterative reconstruction technique) 2010 [employer]- All Rights Reserved Reading location - IP/workstation name: [email or web address]
--- NOTE | 2019-11-26 10:14 | RADIOLOGY REPORT (SQ) ---
EXAM DESCRIPTION: HIP RIGHT AP/LATERAL IMAGES COMPLETED DATE/TIME: 11/26/2019 10:00 am REASON FOR STUDY: PAIN IN R HIP C34.12 MALIGNANT NEOPLASM OF UPPER LOBE, LEFT BRONCHUS OR JESS C79.31 SECONDARY MALIGNANT NEOPLASM OF BRAIN COMPARISON: CT abdomen pelvis done earlier the same day. NUMBER OF VIEWS: Two views. TECHNIQUE: AP pelvis and additional frog-leg view of the right hip. LIMITATIONS: None. FINDINGS: MINERALIZATION: Normal. RIGHT HIP: No fracture or dislocation. No worrisome bone lesions. LEFT HIP: No fracture or dislocation. No worrisome bone lesions. PUBIS AND ISCHIUM: No fracture. PELVIS: No fracture. SACRUM: No fracture or dislocation. No worrisome bone lesions. LOWER LUMBAR SPINE: No fracture or dislocation. No worrisome bone lesions. No significant disc disea se. SOFT TISSUES: No findings. OTHER: There is contrast in the bladder from recent CT. IMPRESSION: NEGATIVE STUDY OF THE RIGHT HIP. NO RADIOGRAPHIC EVIDENCE OF ACUTE INJURY. TECHNICAL DOCUMENTATION: JOB ID: [id number] 2010 [employer]- All Rights Reserved Reading location - IP/workstation name: [email or web address]
== END ==
LOC: RAD 08:23
PROVIDERS: ATTEND Physician Assistant Medical
DX: C34.12 Malignant neoplasm of upper lobe, left bronchus or lung (principal); C79.31 Secondary malignant neoplasm of brain; M25.551 Pain in right hip
CPT/HCPCS: 71260; 74177; 82565

== ENCOUNTER → 2019-12-16 | Outpatient (CLI) | payer MEDICARE, BC ==
--- NOTE | 2019-12-16 11:09 | RADIOLOGY REPORT (SQ) ---
EXAM DESCRIPTION: MRI RT LOWER JOINT COMBO IMAGES COMPLETED DATE/TIME: 12/16/2019 8:56 am REASON FOR STUDY: M79.609 PAIN IN UNSPECIFIED LIMB M79.609 PAIN IN UNSPECIFIED LIMB COMPARISON: None. TECHNIQUE: Righthip images acquired and stored on PACS. Multiplanar images to include fat sensitive sequences as T1, fluid sensitive sequences as T2/STIR and gradient echo sequences. Post-contrast seq uences. 15 cc ProHance. Large FOV fat and fluid sensitive sequences include pelvis and opposite hip . LIMITATIONS: None. FINDINGS: No evidence of metastatic disease or AVN. Moderate osteoarthritic changes in both hips, w orse on the right. No loose bodies. Gluteal and hamstring insertions are unremarkable. Pelvic floo r contents unremarkable. IMPRESSION: No evidence of metastatic disease. Moderate osteoarthritis. TECHNICAL DOCUMENTATION: JOB ID: [id number] 2010 [employer]- All Rights Reserved Reading location - IP/workstation name: [email or web address]
== END ==
LOC: RAD 07:38
PROVIDERS: ATTEND Physician Assistant Medical
DX: M16.0 Bilateral primary osteoarthritis of hip (principal); M79.604 Pain in right leg
CPT/HCPCS: 82565; 73723; A9576

== ENCOUNTER 2020-01-22 23:08 | Observation (INO) | payer MEDICARE, BC ==
[2020-01-23] MEDS ORDERED: ACETAMINOPHEN 325 MG TABLET PO ONE (00:34)
[2020-01-23] MEDS ORDERED: NORMAL SALINE 1000 ML 1,000 ML IV ONE ×3 (00:37→08:30)
--- NOTE | 2020-01-23 00:38 | ER Document Report ---
ED General - General Chief Complaint: Shortness Of Breath Stated Complaint: DIFFICULTY BREATHING Time Seen by Provider: 01/23/20 00:10 TRAVEL OUTSIDE OF THE [place] IN LAST 30 DAYS: No - HPI Context: 70-year-old male with a history of lung cancer, currently on Keytruda for immunotherapy, presents to the emergency department via EMS after having generalized weakness after going to [place] to shrimp picker his prescriptions and a few other items. Patient states he went to the pharmacy, got a few other items and was in self checkout when he started to feel weak. is at bedside and she reports that the patient was noted to slump over and was put in a electric wheelchair. Patient denies loss of consciousness. Patient states he has had progressing shortness of breath over the past several months and has had a fever for 5 days. Patient states he was recently diagnosed with a UTI and is on antibiotics for this but does not know the name of the antibiotic. Patient is scheduled to get his flu shot in 2 days but has not received it yet. Patient denies history of prior COVID infection, known exposure to COVID positive persons or persons under investigation for COVID 19. Patient states his sympto ms are worse with exertion and are improved with rest. Patient denies chest pain. Patient denies loss of sense of taste or smell. Associated symptoms: Other - See HPI Exacerbated by: Other - See HPI Relieved by: Other - See HPI - Related Data Allergies/Adverse Reactions: No Known Allergies Allergy (Unverified 04/30/18 10:04) Past Medical History - General Information source: Patient, Relative - Spouse - Social History Smoking Status: Former Smoker Chew tobacco use (# tins/day): No Frequency of alcohol use: None Drug Abuse: None Lives with: Spouse/Significant other Family History: Reviewed & Not Pertinent Patient has homicidal ideation: No - Past Medical History Cardiac Medical History: Denies: Hx Coronary Artery Disease, Hx Heart Attack, Hx Hypertension Pulmonary Medical History: Reports: Hx Pneumonia Denies: Hx Asthma, Hx Bronchitis, Hx COPD Neurological Medical History: Denies: Hx Cerebrovascular Accident, Hx Seizures Endocrine Medical History: Reports: Hx Hyperthyroidism Renal/ Medical History: Denies: Hx Peritoneal Dialysis Malignancy Medical History: Reports Hx Lung Cancer Musculoskeletal Medical History: Denies Hx Arthritis Past Surgical History: Reports: Hx Orthopedic Surgery - cspine fusion, Other - cleft palate repair - Immunizations Hx Diphtheria, Pertussis, Tetanus Vaccination: - UNKNOWN Review of Systems - Review of Systems Constitutional: Fever, Weakness EENT: No symptoms reported Cardiovascular: Dyspnea. denies: Chest pain Respiratory: No symptoms reported Gastrointestinal: No symptoms reported Genitourinary: No symptoms reported Male Genitourinary: No symptoms reported Musculoskeletal: No symptoms reported Skin: No symptoms reported Hematologic/Lymphatic: No symptoms reported Neurological/Psychological: No symptoms reported -: Yes All other systems reviewed and negative Physical Exam - Vital signs Vitals: Temp Pulse Resp BP Pulse Ox 100.7 F H 104 H 14 126/65 H 92 01/22/20 23:28 01/22/20 23:28 01/22/20 23:28 01/22/20 23:28 01/22/20 23:28 - Notes Notes: CONSTITUTIONAL [Vital signs reviewed, Patient appears comfortable, Alert and oriented X 3, Normal stature.] HEAD [Atraumatic, Normocephalic.] EYES [Eyes are normal to inspection, No discharge from eyes, Extraocular muscles intact, Sclera are normal, Conjunctiva are normal.] ENT No rhinorrhea, Mouth normal to inspection.] NECK [Normal ROM, No jugular venous distention, No meningeal signs] RESPIRATORY CHEST [Chest is nontender, Breath sounds are diminished on the left side, No respiratory distress.] CARDIOVASCULAR [RRR, No murmurs, Normal S1 S2, No rub, No gallop.] ABDOMEN [Abdomen is nontender, No pulsatile masses, No other masses, Bowel sounds normal, No distension, No peritoneal signs, No hernias.] BACK [There is no CVA Tenderness, There is no tenderness to palpation, Normal inspection.] UPPER EXTREMITY [Inspection normal, No cyanosis, No clubbing, No edema, 2+ radial pulses.] LOWER EXTREMITY [Inspection normal, No cyanosis, No clubbing, No edema, No calf tenderness, 2+ femoral pulses.] NEURO [No focal motor deficits, No focal sensory deficits, Speech normal.] SKIN [Skin is warm, Skin is dry, Skin is normal color.] PSYCHIATRIC [Normal affect. ] Course - Re-evaluation Re-evalutation: 01/23/20 04:56 Results of ED MSE discussed with patient and patient's . All questions were answered. Recommendation for admission discussed with patient who was agreeable to be admitted. - Vital Signs Vital signs: Temp Pulse Resp BP Pulse Ox 98.7 F 88 14 110/69 96 01/23/20 03:04 01/23/20 03:04 01/23/20 03:04 01/23/20 03:04 01/23/20 03:04 - Laboratory Result Diagrams: 01/23/20 01:10 01/23/20 01:10 Laboratory results interpreted by me: 01/23/20 01/23/20 01/23/20 01:10 01:10 01:10 RBC 3.44 L Hgb 10.1 L Hct 28.9 L RDW 16.7 H Lymph % (Auto) 8.8 L Seg Neutrophils % 80.9 H PT 27.5 H Sodium 136.3 L Creatinine 1.39 H Est GFR (MDRD) Non-Af 51 L Glucose 121 H Calcium 8.2 L Albumin 3.4 L Urine Protein Urine Blood Urine Urobilinogen 01/23/20 02:20 RBC Hgb Hct RDW Lymph % (Auto) Seg Neutrophils % PT Sodium Creatinine Est GFR (MDRD) Non-Af Glucose Calcium Albumin Urine Protein 30 H Urine Blood LARGE H Urine Urobilinogen 2.0 H - Diagnostic Test Radiology reviewed: Reports reviewed - EKG Interpretation by Me Additional EKG results interpreted by me: 01/23/20 02:12 EKG obtained on 01/23/2020 at 0046 hours was interpreted by this MD. Findings: Normal sinus rhythm, heart rate 94, normal axis, AL interval appears within normal limits, P waves proceed QRS complexes, QRS complex appears narrow, there are no obvious patterns of ST segment elevation, depression or reciprocal change noted to suggest acute myocardial ischemia or infarction. Impression: Normal sinus rhythm with nonspecific ST segments. - Consults Dr. Luciana Mar consulted: 04:32 - recommended admission for observation, agreed with Abx and decadron Reason for consultation: 01/23/20 04:40 fever, dyspnea, lung ca patient Dr. Gar Time consulted: 04:42 - asked Dr. Lucas be called for admission Reason for consultation: 01/23/20 04:42 fever, dyspnea, lung cancer Dr. Lance Mar consulted: 04:55 - will come to ed to see pt Reason for consultation: 01/23/20 04:57 fever, dyspnea, lung ca Consulted provider: will come to ER Discharge - Discharge Clinical Impression: Lung calculus, Person under investigation for COVID-19 Fever Qualifiers: Fever type: unspecified Qualified Code(s): R50.9 - Fever, unspecified Dyspnea Qualifiers: Dyspnea type: unspecified Qualified Code(s): R06.00 - Dyspnea, unspecified Condition: Stable Disposition: ADMITTED OBSERVATION Admitting Provider: Hospitalist Service, Dr. Lucas Unit Admitted: Medical Floor
--- NOTE | 2020-01-23 01:20 | RADIOLOGY REPORT (SQ) ---
CLINICAL INDICATION: dyspnea and fever. TECHNIQUE: A single portable AP view was obtained of the chest at 0051 hours. COMPARISON: July 14, 2018. FINDINGS: The cardiomediastinal silhouette is prominent but stable. The lungs demonstrate progressive volume loss left hemithorax. Pleural thickening left hemithorax. Right lung is grossly clear. Osteoarthritis. IMPRESSION: Progressive volume loss left hemithorax.
[2020-01-23 01:30] LABS: ABSOLUTE BASOPHILS # (AUTO) 0.1 10^3/uL (0.0-0.2); ABSOLUTE EOSINOPHILS # (AUTO) 0.2 10^3/uL (0.0-0.6); ABSOLUTE LYMPHOCYTES (AUTO) 0.7 10^3/uL (0.5-4.7); ABSOLUTE MONOCYTES (AUTO) 0.5 10^3/uL (0.1-1.4); ABSOLUTE NEUT (AUTO) 6.5 10^3/uL (1.7-8.2); BASOPHILS % (AUTO) 0.8 % (0-2); EOSINOPHILS % (AUTO) 2.6 % (0-6); HEMATOCRIT 28.9 % (37.9-51.0); HEMOGLOBIN 10.1 g/dL (13.5-17.0); LYMPHOCYTES % (AUTO) 8.8 % (13-45); MEAN CORPUSCULAR HEMOGLOBIN 29.5 pg (27.0-33.4); MEAN CORPUSCULAR HGB CONC 35.1 g/dL (32.0-36.0); MEAN CORPUSCULAR VOLUME 84 fl (80-97); MONOCYTES % (AUTO) 6.9 % (3-13); PLATELET COUNT 286 10^3/uL (150-450); RED BLOOD COUNT 3.44 10^6/uL (4.35-5.55); RED CELL DISTRIBUTION WIDTH 16.7 % (11.5-14.0); SEGMENTED NEUTROPHILS % (AUTO) 80.9 % (42-78); TOTAL CELLS COUNTED % (AUTO) 100 %
[2020-01-23 01:36] LABS: VENOUS BLOOD BASE EXCESS 1.8 mmol/L; VENOUS BLOOD HCO3 27.2 mmol/L (20-32); VENOUS BLOOD PCO2 45.5 mmHg (35-63); VENOUS BLOOD PH 7.4 (7.30-7.42)
[2020-01-23 01:49] LABS: ALBUMIN 3.4 g/dL (3.5-5.0); ALKALINE PHOSPHATASE 91 U/L (38-126); ANION GAP 7 (5-19); ASPARTATE AMINO TRANSFERASE 47 U/L (17-59); BILIRUBIN,DIRECT 0.4 mg/dL (0.0-0.4); BILIRUBIN,TOTAL 0.6 mg/dL (0.2-1.3); BLOOD UREA NITROGEN 18 mg/dL (7-20); CALCIUM 8.2 mg/dL (8.4-10.2); CARBON DIOXIDE 28 mmol/L (22-30); CHLORIDE 101 mmol/L (98-107); GLUCOSE 121 mg/dL (75-110); POTASSIUM 4.5 mmol/L (3.6-5.0); TOTAL PROTEIN 7.3 g/dL (6.3-8.2)
[2020-01-23 02:08] LABS: INTERNATIONAL RATION (INR) 2.57; PROTHROMBIN TIME 27.5 SEC (11.4-15.4)
[2020-01-23 02:23] LABS: A TYPE INFLUENZA AG NEGATIVE (NEGATIVE); B INFLUENZA AG NEGATIVE (NEGATIVE)
[2020-01-23 04:06] LABS: APPEARANCE,URINE SLIGHTLY-CLOUDY; BILIRUBIN,URINE NEGATIVE (NEGATIVE); COLOR,URINE DARK YELLOW; GLUCOSE, URINE NEGATIVE (NEGATIVE); KETONES,URINE NEGATIVE (NEGATIVE); PROTEIN,URINE 30 mg/dL (NEGATIVE); URINE SPECIFIC GRAVITY 1.019
[2020-01-23] MEDS ORDERED: PIPERACILLIN/TAZOBACTAM 3.375 GM VIAL IV ONE (04:39)
[2020-01-23] MEDS ORDERED: DEXAMETHASONE SOD PHOS INJ 10 MG/1 ML VIAL IV ONE (04:39)
[2020-01-23] MEDS ORDERED: PIPERACILLIN/TAZOBACTAM 3.375 GM VIAL IV SCH (05:45)
[2020-01-23] MEDS ORDERED: ACETAMINOPHEN 325 MG TABLET PO PRN (05:47)
[2020-01-23] MEDS ORDERED: LEVOTHYROXINE SODIUM 0.15 MG TABLET PO ONE ×2 (06:45→11:00)
--- NOTE | 2020-01-23 06:58 | PDOC H&P ---
History of Present Illness Admission Date/PCP: KISHA PAYNE PA-C 01/23/2020 Patient complains of: fever, generallized weakness History of Present Illness: MELISSA LESLIE is a 70 year old male with a history of stage IV lung cancer with brain metastases status post chemoradiation radiation therapy who is currently on immunotherapy with pembrolizumab was brought in by EMS after he experienced an episode of worsening of shortness of breath and generalized weakness while he was at the local [facility] to collect his prescriptions. He states that he felt w eak suddenly at the checkout and while trying to sit on electric chair he fell forward. Patient reports that he felt very weak but denies any history of loss of consciousness or head injury. He states that he has been having episodes of fever for the past 1 week. He has been having progressively worsening shortness of breath for the past 3 months. He denies current worsening of cough and has no sputum production. Also denies any contact with sick patient or recent travel. He also denies any nausea, vomiting, abdominal pain, diarrhea, dysuria, frequency or urgency of urination. Reportedly patient was on treatment for UTI as an outpatient but does not remember the name of the antibiotic he was on. Past Medical History Cardiac Medical History: Denies: Coronary Artery Disease, Myocardial Infarction, Hypertension Pulmonary Medical History: Reports: Pneumonia Denies: Asthma, Bronchitis, Chronic Obstructive Pulmonary Disease (COPD) Neurological Medical History: Denies: Seizures Endocrine Medical History: Reports: Hyperthyroidism Malignancy Medical History: Reports: Lung Cancer Musculoskeltal Medical History: Denies: Arthritis Hematology: Denies: Anemia Past Surgical History Past Surgical History: Reports: Orthopedic Surgery - cspine fusion, Other - cleft palate repair Social History Lives with: Spouse/Significant other Smoking Status: Former Smoker Electronic Cigarette use?: No Last Time Smoked: More than 30 years back Frequency of Alcohol Use: None Hx Recreational Drug Use: No Drugs: None Hx Prescription Drug Abuse: No - Advance Directive Resuscitation Status: Full Code Family History Family History: Reviewed & Not Pertinent Parental Family History Reviewed: Yes Children Family History Reviewed: Yes Sibling(s) Family History Reviewed.: Yes Medication/Allergy Home Medications: Amitriptyline HCl [Elavil 50 mg Tablet] 50 mg PO QHS 09/08/18 Clonazepam [Klonopin 1 mg Tablet] 1 mg PO TIDP PRN 09/08/18 Folic Acid [Folvite 1 mg Tablet] 2 mg PO QHS 09/08/18 Levothyroxine Sodium [Synthroid] 175 mcg PO Q6AM 09/08/18 Rivaroxaban [Xarelto] 20 mg PO QHS 09/08/18 Hydrocodone Bit/Acetaminophen [Hydrocodon-Acetaminoph 2.5-325] 1 each PO Q6HP PRN #10 tablet 09/10/18 Prednisone [Deltasone 20 mg Tablet] 20 mg PO DAILY #13 tablet 09/10/18 Allergies/Adverse Reactions: No Known Allergies Allergy (Unverified 04/30/18 10:04) Review of Systems Constitutional: PRESENT: chills, fatigue, fever(s), weakness, weight loss Eyes: ABSENT: visual disturbances Ears: ABSENT: hearing changes Cardiovascular: PRESENT: dyspnea on exertion. ABSENT: chest pain, edema, orthropnea, palpitations Respiratory: ABSENT: cough, hemoptysis Gastrointestinal: ABSENT: abdominal pain, constipation, diarrhea, hematemesis, hematochezia, nausea, vomiting Genitourinary: ABSENT: dysuria, hematuria Musculoskeletal: ABSENT: joint swelling Integumentary: ABSENT: rash, wounds Neurological: ABSENT: abnormal gait, abnormal speech, confusion, dizziness, fo azam weakness, syncope Endocrine: ABSENT: cold intolerance, heat intolerance, polydipsia, polyuria Physical Exam Vital Signs: Temp Pulse Resp BP Pulse Ox 98.7 F 88 14 110/69 96 01/23/20 03:04 01/23/20 03:04 01/23/20 03:04 01/23/20 03:04 01/23/20 03:04 Intake & Output 01/21/20 01/22/20 01/23/20 06:59 06:59 06:59 Intake Total 1000 Balance 1000 Weight 88.451 kg General appearance: PRESENT: no acute distress, cooperative, well-developed Head exam: PRESENT: atraumatic, normocephalic Eye exam: PRESENT: conjunctiva pink, EOMI, PERRLA. ABSENT: scleral icterus Mouth exam: PRESENT: moist, tongue midline Neck exam: ABSENT: carotid bruit, JVD, lymphadenopathy, thyromegaly Respiratory exam: PRESENT: crackles - on the left upper chest Cardiovascular exam: PRESENT: RRR. ABSENT: diastolic murmur, rubs, systolic murmur Pulses: PRESENT: normal dorsalis pedis pul Vascular exam: PRESENT: normal capillary refill GI/Abdominal exam: PRESENT: normal bowel sounds, soft. ABSENT: distended, guarding, mass, organolmegaly, rebound, tenderness Rectal exam: PRESENT: deferred Extremities exam: PRESENT: full ROM. ABSENT: calf tenderness, clubbing, pedal edema Musculoskeletal exam: PRESENT: full ROM, normal inspection Neurological exam: PRESENT: alert, awake, oriented to person, oriented to place, oriented to time, oriented to situation, CN II-XII grossly intact. ABSENT: motor sensory deficit Psychiatric exam: PRESENT: appropriate affect, normal mood Skin exam: PRESENT: dry, intact, warm. ABSENT: cyanosis, rash Results Laboratory Results: 01/23/20 01:10 01/23/20 01:10 01/23/20 01/23/20 01/23/20 01:10 01:10 01:10 WBC 8.0 RBC 3.44 L Hgb 10.1 L Hct 28.9 L MCV 84 MCH 29.5 MCHC 35.1 RDW 16.7 H Plt Count 286 Seg Neutrophils % 80.9 H VBG pH 7.40 VBG pCO2 45.5 VBG HCO3 27.2 VBG Base Excess 1.8 Sodium 136.3 L Potassium 4.5 Chloride 101 Carbon Dioxide 28 Anion Gap 7 BUN 18 Creatinine 1.39 H Est GFR ( Amer) > 60 Glucose 121 H Lactic Acid Calcium 8.2 L Total Bilirubin 0.6 AST 47 Alkaline Phosphatase 91 Total Protein 7.3 Albumin 3.4 L Urine Color Urine Appearance Urine pH Ur Specific [place] Urine Protein Urine Glucose (UA) Urine Ketones Urine Blood Urine RBC (Auto) 01/23/20 01/23/20 01/23/20 01:10 02:20 04:00 WBC RBC Hgb Hct MCV MCH MCHC RDW Plt Count Seg Neutrophils % VBG pH VBG pCO2 VBG HCO3 VBG Base Excess Sodium Potassium Chloride Carbon Dioxide Anion Gap BUN Creatinine Est GFR ( Amer) Glucose Lactic Acid 0.9 0.7 Calcium Total Bilirubin AST Alkaline Phosphatase Total Protein Albumin Urine Color DARK YELLOW Urine Appearance SLIGHTLY-CLOUDY Urine pH 5.0 Ur Specific [place] 1.019 Urine Protein 30 H Urine Glucose (UA) NEGATIVE Urine Ketones NEGATIVE Urine Blood LARGE H Urine RBC (Auto) 17 Impressions: Chest X-Ray 01/23/20 00:35 IMPRESSION: Progressive volume loss left hemithorax. Assessment and Plan - Diagnosis (1) Fever Qualifiers: Fever type: unspecified Qualified Code(s): R50.9 - Fever, unspecified Is this a current diagnosis for this admission?: Yes Plan: Patient has a history of stage IV lung cancer on immunotherapy with pembrolizumab On presentation had a fever of 100.7 Likely source of infection could be partially treated UTI Has no leukocytosis, lactic acid level within the normal limit UA showed 11 WBCs per high-power field, but negative leukocyte esterase and nitrates Chest x-ray shows progressive volume loss of the left hemithorax Started on Zosyn for broad coverage COVID-19 results pending Follow-up with urine and blood cultures (2) Dyspnea Qualifiers: Dyspnea type: unspecified Qualified Code(s): R06.00 - Dyspnea, unspecified Is this a current diagnosis for this admission?: Yes Plan: Patient has market left lung volume loss due to underlying malignancy and radiotherapy Acute worsening could be likely due to viral infection Patient states that he has been adherent with anticoagulation Continue intranasal oxygen to keep oxygen saturation above 94% Follow-up with COVID-19 result (3) Person under investigation for COVID-19 Is this a current diagnosis for this admission?: Yes Plan: Patient presents with shortness of breath and fever Has been swapped for COVID-19 at the ER and result pending Oxygen saturation was between 88 and 90% on arrival to the ED Placed on vitamin C, zinc, vitamin D and melatonin (4) Acute kidney injury Is this a current diagnosis for this admission?: Yes Plan: BUN/creatinine on this presentation with 18/1.39 from a baseline of creatinine of around 0.91 Likely prerenal due to poor oral intake Will obtain urine sodium and creatinine Patient received 2 L of IV LR at the ER We will continue to monitor kidney function and electrolytes (5) Anemia Qualifiers: Anemia type: other cause Other causes of anemia: chronic disease, neoplastic Qualified Code(s): D63.0 - Anemia in neoplastic disease Is this a current diagnosis for this admission?: Yes Plan: Likely anemia of chronic illness H&H on this presentation 10.1/28.9 with normal MCV Continue to monitor (6) History of pulmonary embolus (PE) Is this a current diagnosis for this admission?: Yes Plan: Continue rivaroxaban (7) Hyperthyroidism Is this a current diagnosis for this admission?: Yes Plan: Continue levothyroxine (8) Lung cancer Qualifiers: Laterality: left Is this a current diagnosis for this admission?: Yes Plan: Status post resection of brain metastasis, chemotherapy and radiotherapy Patient currently on immunotherapy with pembrolizumab - Time Time Spent with patient: 35 or more minutes Total Critical Time (Minutes): 45 Anticipated Discharge Disposition: Home, Self Care Anticipated Discharge Timeframe: within 48 hours - Inpatient Certification Medical Necessity: Significant Comorbidiites Make Outpatient Treatment Too [place]is [place], Need for IV Antibiotics Post Hospital Care: D/C or Transfer Summary
[2020-01-23 07:11] LABS: URINE CREATININE 179.5 mg/dL (22-328)
--- NOTE | 2020-01-23 09:09 | EKG REPORT ---
SEVERITY:- BORDERLINE ECG - SINUS RHYTHM LOW VOLTAGE THROUGHOUT : Confirmed by: Pamela Monroe MD 23-Jan-2020 09:09:09
[2020-01-23] MEDS: ASCORBIC ACID 500 MG TABLET PO SCH ×2 (10:23→17:32)
[2020-01-23] MEDS: ZINC SULFATE 220 MG CAPSULE PO SCH (10:23)
[2020-01-23] MEDS: PIPERACILLIN SODIUM/TAZOBACTAM 3.375 GM in NORMAL SALINE 100 ML IV SCH ×2 (12:16→17:33)
[2020-01-23] MEDS: NORMAL SALINE 1000 ML 1,000 ML IV PRN ×2 (12:16→23:43)
[2020-01-23 12:28] LABS: HEMATOCRIT 27.7 % (37.9-51.0); HEMOGLOBIN 9.5 g/dL (13.5-17.0); MEAN CORPUSCULAR HGB CONC 34.3 g/dL (32.0-36.0); MEAN CORPUSCULAR VOLUME 85 fl (80-97); PLATELET COUNT 248 10^3/uL (150-450); RED BLOOD COUNT 3.28 10^6/uL (4.35-5.55); RED CELL DISTRIBUTION WIDTH 16.7 % (11.5-14.0); WHITE BLOOD COUNT 4.8 10^3/uL (4.0-10.5)
[2020-01-23 12:50] LABS: ANION GAP 5 (5-19); BLOOD UREA NITROGEN 18 mg/dL (7-20); C-REACTIVE PROTEIN 88.6 mg/L (<10.0); CALCIUM 7.3 mg/dL (8.4-10.2); CARBON DIOXIDE 26 mmol/L (22-30); CHLORIDE 105 mmol/L (98-107); GLUCOSE 145 mg/dL (75-110); POTASSIUM 4.8 mmol/L (3.6-5.0)
[2020-01-23] MEDS ORDERED: OXYCODONE HCL IR 5 MG TABLET PO PRN (16:44)
[2020-01-23] MEDS ORDERED: IPRATROPIUM/ALBUTEROL 0.5-2.5 MG/3 ML AMPUL NEB PRN (16:44)
[2020-01-23] MEDS ORDERED: TAMSULOSIN HCL 0.4 MG CAP.SR.24H PO ONE ×2 (17:00→18:26)
[2020-01-23] MEDS: RIVAROXABAN 10 MG TABLET PO SCH (17:33)
[2020-01-23] MEDS ORDERED: RIVAROXABAN 10 MG TABLET ONE (18:26)
[2020-01-23] MEDS ORDERED: MELATONIN 5 MG TABLET PO SCH (22:00)
[2020-01-23] MEDS ORDERED: AMITRIPTYLINE HCL 50 MG TABLET PO SCH ×2 (22:00)
[2020-01-24] MEDS: PIPERACILLIN SODIUM/TAZOBACTAM 3.375 GM in NORMAL SALINE 100 ML IV SCH ×3 (00:45→11:37)
[2020-01-24] MEDS ORDERED: LEVOTHYROXINE SODIUM 0.15 MG TABLET PO SCH (06:00)
[2020-01-24 06:44] LABS: ABSOLUTE LYMPHOCYTES (AUTO) 0.6 10^3/uL (0.5-4.7); ABSOLUTE MONOCYTES (AUTO) 0.4 10^3/uL (0.1-1.4); ABSOLUTE NEUT (AUTO) 6.1 10^3/uL (1.7-8.2); BASOPHILS % (AUTO) 0.2 % (0-2); EOSINOPHILS % (AUTO) 0.1 % (0-6); HEMATOCRIT 25.6 % (37.9-51.0); HEMOGLOBIN 8.7 g/dL (13.5-17.0); LYMPHOCYTES % (AUTO) 8.5 % (13-45); MEAN CORPUSCULAR HEMOGLOBIN 28.8 pg (27.0-33.4); MEAN CORPUSCULAR VOLUME 85 fl (80-97); MONOCYTES % (AUTO) 5.2 % (3-13); PLATELET COUNT 264 10^3/uL (150-450); RED BLOOD COUNT 3.01 10^6/uL (4.35-5.55); TOTAL CELLS COUNTED % (AUTO) 100 %; WHITE BLOOD COUNT 7.1 10^3/uL (4.0-10.5)
[2020-01-24 07:06] LABS: ALBUMIN 2.6 g/dL (3.5-5.0); ALKALINE PHOSPHATASE 63 U/L (38-126); ANION GAP 6 (5-19); ASPARTATE AMINO TRANSFERASE 186 U/L (17-59); BILIRUBIN,DIRECT 0.3 mg/dL (0.0-0.4); BILIRUBIN,TOTAL 0.5 mg/dL (0.2-1.3); BLOOD UREA NITROGEN 15 mg/dL (7-20); CALCIUM 7.5 mg/dL (8.4-10.2); CARBON DIOXIDE 23 mmol/L (22-30); CHLORIDE 108 mmol/L (98-107); GLUCOSE 119 mg/dL (75-110); POTASSIUM 4.2 mmol/L (3.6-5.0); TOTAL PROTEIN 5.5 g/dL (6.3-8.2)
[2020-01-24] MEDS ORDERED: INFLUENZA QUAD (6MOS+) 2020-21 VAC 0.5 ML SYR IM ONE (08:00)
[2020-01-24] MEDS: ZINC SULFATE 220 MG CAPSULE PO SCH (09:19)
[2020-01-24] MEDS: ASCORBIC ACID 500 MG TABLET PO SCH (09:19)
[2020-01-24] MEDS ORDERED: DEXAMETHASONE SOD PHOS INJ 10 MG/1 ML VIAL IV SCH (10:00)
[2020-01-24] MEDS ORDERED: TAMSULOSIN HCL 0.4 MG CAP.SR.24H PO SCH (10:00)
[2020-01-24] MEDS: RIVAROXABAN 10 MG TABLET PO SCH (16:17)
[2020-01-24 17:31] VITALS: BP 115/60
--- NOTE | 2020-01-24 19:56 | PDOC DISCHARGE SUMMARY ---
Impression - Admit/DC Date/PCP Admission Date/Primary Care Provider: 01/23/20 06:06 KISHA PAYNE PA-C Discharge Date: 01/24/20 - Discharge Diagnosis (1) Acute kidney injury Is this a current diagnosis for this admission?: Yes (2) Dyspnea Is this a current diagnosis for this admission?: Yes (3) Fever Is this a current diagnosis for this admission?: Yes (4) History of pulmonary embolus (PE) Is this a current diagnosis for this admission?: Yes (5) Lung cancer Is this a current diagnosis for this admission?: Yes (6) Person under investigation for COVID-19 Is this a current diagnosis for this admission?: Yes - Assessment Summary: MELISSA LESLIE is a 70 year old male with a history of stage IV lung cancer with brain metastases status post chemoradiation, currently on immunotherapy with pembrolizumab, who presented to the ED after he experienced an episode of worsening of VELASQUEZ and generalized weakness while he was at the local [facility] to collect his prescriptions. He states that he has been having one month of VELASQUEZ and low-grade fevers up to 100.9 F. He has completed several courses of outpatient oral antibiotics as well as a tapering schedule of steroids, with no improvement in symptoms. On admission, labs were notable for BABITA, hyponatremia, elevated D dimer and CRP. Covid 19 testing, BCx and UCx were obtained and showed no growth. His BABITA and hyponatremia resolved quickly with IVF. Covid 19 test was negative. He did not require oxygen at rest but did require oxygen with ambulation, likely due to underlying lung cancer. His recurrent low grade fevers for the last month are unlikely to be due to infection at this point, given that he has completed several courses of antibiotics, and much more likely to be due to tumor burden. Therefore, antibiotics were discontinued. He was discharged home with supplemental O2 and close outpatient oncology follow up in 1 week. - Additional Information Resuscitation Status: Do Not Resuscitate Discharge Diet: Regular Discharge Activity: Activity As Tolerated Referrals: KISHA HEALY PA-C [Primary Care Provider] - 02/02/20 12:45 pm Home Medications: Amitriptyline HCl [Elavil 50 mg Tablet] 50 mg PO QHS 09/08/18 Levothyroxine Sodium [Synthroid] 175 mcg PO Q6AM 09/08/18 Rivaroxaban [Xarelto] 20 mg PO QHS 09/08/18 Ipratropium/Albuterol Sulfate [Duoneb 3 ml Ampul] 3 ml NEB RTQ6HP PRN 01/23/20 Methylphenidate HCl 10 mg PO BID 01/23/20 Oxycodone HCl [Roxicodone] 10 mg PO Q6HP PRN 01/23/20 Tamsulosin HCl [Flomax 0.4 mg Cap.sr] 0.4 mg PO DAILY 01/23/20 History of Present Illiness History of Present Illness: MELISSA LESLIE is a 70 year old male Physical Exam Vital Signs: Temp Pulse Resp BP Pulse Ox 97.4 F 95 16 115/60 100 01/24/20 17:28 01/24/20 17:28 01/24/20 17:28 01/24/20 17:28 01/24/20 17:28 Intake & Output 01/23/20 01/24/20 01/25/20 06:59 06:59 06:59 Intake Total 1000 3000 1900 Output Total 675 Balance 1000 2325 1900 Weight 88.451 kg 94.2 kg Results Laboratory Results: WBC 7.1 10^3/uL (4.0-10.5) 01/24/20 06:20 RBC 3.01 10^6/uL (4.35-5.55) L 01/24/20 06:20 Hgb 8.7 g/dL (13.5-17.0) L 01/24/20 06:20 Hct 25.6 % (37.9-51.0) L 01/24/20 06:20 MCV 85 fl (80-97) 01/24/20 06:20 MCH 28.8 pg (27.0-33.4) 01/24/20 06:20 MCHC 34.0 g/dL (32.0-36.0) 01/24/20 06:20 RDW 17.0 % (11.5-14.0) H 01/24/20 06:20 Plt Count 264 10^3/uL (150-450) 01/24/20 06:20 Lymph % (Auto) 8.5 % (13-45) L 01/24/20 06:20 [place] % (Auto) 5.2 % (3-13) 01/24/20 06:20 Eos % (Auto) 0.1 % (0-6) 01/24/20 06:20 Baso % (Auto) 0.2 % (0-2) 01/24/20 06:20 Absolute Neuts (auto) 6.1 10^3/uL (1.7-8.2) 01/24/20 06:20 Absolute Lymphs (auto) 0.6 10^3/uL (0.5-4.7) 01/24/20 06:20 Absolute Monos (auto) 0.4 10^3/uL (0.1-1.4) 01/24/20 06:20 Absolute Eos (auto) 0.0 10^3/uL (0.0-0.6) 01/24/20 06:20 Absolute Basos (auto) 0.0 10^3/uL (0.0-0.2) 01/24/20 06:20 Seg Neutrophils % 86.0 % (42-78) H 01/24/20 06:20 PT 27.5 SEC (11.4-15.4) H 01/23/20 01:10 INR 2.57 01/23/20 01:10 D-Dimer 4.15 ug/mL (0.00-0.50) H 01/23/20 12:10 VBG pH 7.40 (7.30-7.42) 01/23/20 01:10 VBG pCO2 45.5 mmHg (35-63) 01/23/20 01:10 VBG HCO3 27.2 mmol/L (20-32) 01/23/20 01:10 VBG Base Excess 1.8 mmol/L 01/23/20 01:10 Sodium 137.2 mmol/L (137-145) 01/24/20 06:20 Potassium 4.2 mmol/L (3.6-5.0) 01/24/20 06:20 Chloride 108 mmol/L (98-107) H 01/24/20 06:20 Carbon Dioxide 23 mmol/L (22-30) 01/24/20 06:20 Anion Gap 6 (5-19) 01/24/20 06:20 BUN 15 mg/dL (7-20) 01/24/20 06:20 Creatinine 0.92 mg/dL (0.52-1.25) 01/24/20 06:20 Est GFR ( Amer) > 60 (>60) 01/24/20 06:20 Est GFR (MDRD) Non-Af > 60 (>60) 01/24/20 06:20 Glucose 119 mg/dL (75-110) H 01/24/20 06:20 Lactic Acid 0.7 mmol/L (0.7-2.1) 01/23/20 12:10 Calcium 7.5 mg/dL (8.4-10.2) L 01/24/20 06:20 Magnesium 2.4 mg/dL (1.6-2.3) H 01/24/20 06:20 Ferritin 96.00 ng/mL (17.9-464.0) 01/23/20 12:10 Total Bilirubin 0.5 mg/dL (0.2-1.3) 01/24/20 06:20 Direct Bilirubin 0.3 mg/dL (0.0-0.4) 01/24/20 06:20 Neonat Total Bilirubin Not Reportable 01/24/20 06:20 Neonat Direct Bilirubin Not Reportable 01/24/20 06:20 Neonat Indirect Bili Not Reportable 01/24/20 06:20 AST 186 U/L (17-59) H 01/24/20 06:20 ALT 32 U/L (<50) 01/24/20 06:20 Alkaline Phosphatase 63 U/L (38-126) 01/24/20 06:20 C-Reactive Protein 88.6 mg/L (<10.0) H 01/23/20 12:10 Total Protein 5.5 g/dL (6.3-8.2) L 01/24/20 06:20 Albumin 2.6 g/dL (3.5-5.0) L 01/24/20 06:20 Urine Color DARK YELLOW 01/23/20 02:20 Urine Appearance SLIGHTLY-CLOUDY 01/23/20 02:20 Urine pH 5.0 (5.0-9.0) 01/23/20 02:20 Ur Specific [place] 1.019 01/23/20 02:20 Urine Protein 30 mg/dL (NEGATIVE) H 01/23/20 02:20 Urine Glucose (UA) NEGATIVE mg/dL (NEGATIVE) 01/23/20 02:20 Urine Ketones NEGATIVE mg/dL (NEGATIVE) 01/23/20 02:20 Urine Blood LARGE (NEGATIVE) H 01/23/20 02:20 Urine Nitrite (Reflex) NEGATIVE (NEGATIVE) 01/23/20 02:20 Urine Bilirubin NEGATIVE (NEGATIVE) 01/23/20 02:20 Urine Urobilinogen 2.0 mg/dL (<2.0) H 01/23/20 02:20 Leukocyte Esterase Rfl NEGATIVE (NEGATIVE) 01/23/20 02:20 Urine RBC (Auto) 17 /HPF 01/23/20 02:20 U Hyaline Cast (Auto) 97 /LPF 01/23/20 02:20 Urine WBC (Reflex) 11 /HPF 01/23/20 02:20 Squamous Epi Cells Auto 4 /HPF 01/23/20 02:20 Urine Mucus (Auto) FEW /LPF 01/23/20 02:20 Urine Creatinine 179.5 mg/dL (22-328) 01/23/20 02:20 Urine Sodium 95 mmol/L (30-90) H 01/23/20 02:20 Urine Ascorbic Acid NEGATIVE (NEGATIVE) 01/23/20 02:20 COVID-19 Source See comment 01/23/20 01:15 COVID-19 (SONIA) Not Detected (Not Detect) 01/23/20 01:15 Influenza A (Rapid) NEGATIVE (NEGATIVE) 01/23/20 01:15 Influenza B (Rapid) NEGATIVE (NEGATIVE) 01/23/20 01:15 Impressions: Chest X-Ray 01/23/20 00:35 IMPRESSION: Progressive volume loss left hemithorax. Stroke Is this a Stroke Patient?: No Acute Heart Failure Is this a Heart Failure Patient?: No
--- NOTE | 2020-01-30 08:00 | Progress Note ---
Provider Note Provider Note: 01/30/2020 Post discharge note Contacted by microbiology 1 blood culture positive for staph epidermidis. Clinically insignificant. Likely contaminant.
== END 2020-01-24 18:26 | disposition home or self-care (01) ==
LOC: ER 23:08 → EH 01-23 06:06 → 3W 01-23 20:27 → 4W 01-24 09:32
PROVIDERS: ADMIT Student in an Organized Health Care Education/Training Program; ATTEND Hospitalist
DX: N17.9 Acute kidney failure, unspecified (principal); R06.00 Dyspnea, unspecified; R50.9 Fever, unspecified; C34.92 Malignant neoplasm of unspecified part of left bronchus or lung; C79.31 Secondary malignant neoplasm of brain; D63.0 Anemia in neoplastic disease; E03.9 Hypothyroidism, unspecified; R06.02 Shortness of breath; R05 Cough; R53.83 Other fatigue; R53.1 Weakness; R63.4 Abnormal weight loss; Z86.711 Personal history of pulmonary embolism; Z79.899 Other long term (current) drug therapy; Z79.2 Long term (current) use of antibiotics; Z79.52 Long term (current) use of systemic steroids; Z87.891 Personal history of nicotine dependence; Z20.828 Contact with and (suspected) exposure to other viral communicable diseases
CPT/HCPCS: 93005; 99285; 96361; 96375; 96365; 36415 ×2; 87040; 87086; 82728; 83605; 83735 ×2; 82570; 84300; 85025 ×2; 85610; 86140; 87077; 80053 ×2; 81001; 87186; 85379; 82803; 87804; 87150 ×26; 71045; 90686; 93010; G0378 ×3; G0008; U0003; A9270 ×13; J7050 ×2; J7030; J1100 ×2; J2543 ×2; J1642; C9803; 87635; 90471; J3490

== ENCOUNTER → 2020-02-08 | Outpatient (CLI) | payer MEDICARE, BC ==
--- NOTE | 2020-02-08 12:40 | RADIOLOGY REPORT (SQ) ---
EXAM DESCRIPTION: MRI HEAD COMBO IMAGES COMPLETED DATE/TIME: 02/08/2020 11:04 am REASON FOR STUDY: C34.12 MALIGNANT NEOPLASM OF UPPER LOBE, LEFT BRONCHUS OR LUNG C34.12 MALIGNANT N EOPLASM OF UPPER LOBE, LEFT BRONCHUS OR JESS COMPARISON: MRI brain 10/01/2018, 05/05/2018 TECHNIQUE: Multiplanar imaging includes noncontrasted T1, T2, FLAIR, diffusion with ADC map and post gadolinium contrast T1 sequences. Images stored on PACS. CONTRAST TYPE AND DOSE: 15 mL Prohance. RENAL FUNCTION: Not indicated. ACR Type II contrast agent associated with few, if any, unconfounded cases of NSF LIMITATIONS: None. FINDINGS: ANATOMY: No anomalies. Normal vascular flow voids. Pituitary fossa normal. CSF SPACES: Normal in size and contour. No hemorrhage. CEREBRUM: No masses or enhancement worrisome for brain parenchymal metastatic disease. Diffusion-weighted images are negative for acute ischemic change. FLAIR/T2 weighted images demonstrate few foci of increased signal in the hemispheric white matter fro m minimal age-appropriate chronic small vessel disease POSTERIOR FOSSA: No signal alteration. No hemorrhage. No edema, masses, or mass effect. Internal kvng tory canals, cerebellopontine angles, mastoids normal. No enhancing lesions. No abnormal enhancement post contrast. DIFFUSION IMAGING: Negative for acute or subacute infarction. ORBITS: No masses. Globes normal. PARANASAL SINUSES: No fluid levels. Mucosa normal. OTHER: No other significant finding. IMPRESSION: ESSENTIALLY NORMAL MRI OF THE BRAIN WITHOUT AND WITH INTRAVENOUS GADOLINIUM CONTRAST. EVIDENCE OF ACUTE STROKE: NO. TECHNICAL DOCUMENTATION: JOB ID: [id number] 2010 [employer]- All Rights Reserved Reading location - IP/workstation name: [email or web address]
--- NOTE | 2020-02-08 16:33 | RADIOLOGY REPORT (SQ) ---
EXAM DESCRIPTION: PET CT SKULL/THIGH IMAGES COMPLETED DATE/TIME: 02/08/2020 1:43 pm REASON FOR STUDY: C34.12 MALIGNANT NEOPLASM OF UPPER LOBE, LEFT BRONCHUS OR LUNG C34.12 MALIGNANT N EOPLASM OF UPPER LOBE, LEFT BRONCHUS OR JESS COMPARISON: Prior PET-CT dated 08/17/2019 RADIONUCLIDE AND DOSE: 10.1 mCi F18 FDG The route of agent administration: Intravenous FASTING BLOOD SUGAR: 115 mg/dl CONTRAST TYPE AND DOSE: No CT contrast given. TECHNIQUE: Blood glucose level was verified. Above dose of FDG was injected intravenously. 2-D seg mented attenuation correction images were obtained from the base of the skull to the midthighs. Nonc ontrast CT images were obtained for attenuation correction and fusion with emission images. CT image s were performed without oral or intravenous contrast and are not sensitive for parenchymal lesions. A series of overlapping emission PET images were obtained. Images reviewed and manipulated at [facility] work station by the radiologist. Images stored on PACS. LIMITATIONS: None. FINDINGS: HEAD AND NECK: No areas of abnormal metabolic activity in the soft tissues of the head and neck. CHEST: No areas of abnormal metabolic activity in the chest. ABDOMEN AND PELVIS: No areas of abnormal metabolic activity in the abdomen or pelvis. Expected physi ologic activity is present in the genitourinary system and bowel. PROXIMAL LOWER EXTREMITIES: No areas of abnormal metabolic activity in the soft tissues of the lower extremities. BONES: No abnormal metabolic activity in the visualized skeleton. ADDITIONAL CT FINDINGS: Chronic postsurgical along with pleural and parenchymal changes in the left h emithorax. The left perihilar airspace disease and pleural effusion are improved when compared to pr ior exam. No abnormal metabolic activity. Stable OTHER: No other significant findings. IMPRESSION: No evidence of residual disease or metastatic disease by PET evaluation. Stable 3.4 x 3.6 cm infrarenal abdominal aortic aneurysm. Please see below for recommended follow-up . COMMENT: AAA Size: Follow-up Recommendation 3.5-3.9 cm Recommended followup every 2 years. *Based upon the ACR White Paper in the J Am Sam Radiol 2013;10 (10):789-794. *For aortas of maximum diameter of 2.6-2.9 cm meeting the criteria for AAA (?1.5 x proximal normal se gment) TECHNICAL DOCUMENTATION: JOB ID: [id number] 2010 [employer]- All Rights Reserved Reading location - IP/workstation name: [email or web address]
== END ==
LOC: RAD 08:02
PROVIDERS: ATTEND Internal Medicine
DX: C34.12 Malignant neoplasm of upper lobe, left bronchus or lung (principal); I71.4 Abdominal aortic aneurysm, without rupture
CPT/HCPCS: 70553; 78815; A9576; A9552

== ENCOUNTER 2020-04-05 18:15 | Emergency (ER) | payer MEDICARE, BC ==
[~2020-04-05 18:15] MED LIST changes: -CEFAZOLIN 1 GM/D5W RTU 1 GM/50 ML RTUPB IV PRN; -DEXTROSE 5%-1/2 NORMAL SALINE 500 ML IV PRN; -DIAZEPAM 5 MG TABLET PO PRN; +EPINEPHRINE INJ 1 MG/10 ML DISP.SYRIN ONE; -OXYCODONE-ACETAMINOPHEN 5-325 MG TABLET PO PRN
--- NOTE | 2020-04-05 19:35 | ER Document Report ---
ED Resuscitation - General Chief Complaint: Cardiac Arrest Stated Complaint: UNRESPONSIVE Primary Care Provider: EDWARD BRANCH MD [Primary Care Provider] - Follow up as needed Mode of Arrival: Medic Information source: Emergency Med Personnel Cannot obtain history due to: Intubated Notes: 70-year-old male with end-stage lung cancer per EMS presents after a V. fib arrest. EMS reports that upon their arrival ACLS protocol was initiated, patient had a shockable rhythm (ventricular fibrillation) EMS reported 7 shocks and multiple rounds of epi and ROSC at 32 minutes. EMS had called in prior to arrival to call the code but at that time they achieved ROSC. Upon arrival to the emergency department patient is intubated, being paced. Upon my assessment patient is pulseless and ACLS was initiated again. Tube placement was confirmed. TRAVEL OUTSIDE OF THE [place] IN LAST 30 DAYS: No - HPI Witnessed arrest: Yes Bystander CPR?: No Down-time before ACLS: 10:00 Onset: Just prior to arrival - Paramedics initial findings Unresponsive: Completely Rhythm: PEA - Pre-hospital treatment Treatment: Intubated Epinephrine Dose (mg): 1 - Related Data Allergies/Adverse Reactions: No Known Allergies Allergy (Unverified 04/30/18 10:04) Past Medical History - General Information source: Emergency Med Personnel - Social History Smoking Status: Unknown if Ever Smoked Family History: Reviewed & Not Pertinent - Past Medical History Cardiac Medical History: Denies: Hx Coronary Artery Disease, Hx Heart Attack, Hx Hypertension Pulmonary Medical History: Reports: Hx Pneumonia Denies: Hx Asthma, Hx Bronchitis, Hx COPD Neurological Medical History: Denies: Hx Cerebrovascular Accident, Hx Seizures Endocrine Medical History: Reports: Hx Hyperthyroidism Renal/ Medical History: Denies: Hx Peritoneal Dialysis Malignancy Medical History: Reports Hx Lung Cancer Musculoskeletal Medical History: Denies Hx Arthritis Psychiatric Medical History: Denies: Hx Depression Past Surgical History: Reports: Hx Orthopedic Surgery - cspine fusion, Other - cleft palate repair - Immunizations Hx Diphtheria, Pertussis, Tetanus Vaccination: - UNKNOWN Review of Systems - Review of Systems -: Yes ROS unobtainable due to patient's medical condition Physical Exam - General General appearance: Unresponsive - HEENT Head: Normocephalic Eyes: Other - Pupils fixed and dilated Extraocular movements intact: No Pupils: Dilated, Fixed - Respiratory Respiratory status: Other - Intubated - Cardiovascular Rhythm: Other - Pulseless Normal capillary refill: No - Abdominal Distension: Distended - Extremities General upper extremity: Normal inspection - Neurological Cognition: Other - Unresponsive - Skin Skin Temperature: Cold Skin Color: Pale, Cyanotic Course - Re-evaluation Re-evalutation: 04/05/20 19:37 70-year-old male with end-stage lung cancer per EMS presents after a V. fib arrest. EMS reports that upon their arrival ACLS protocol was initiated, patient had a shockable rhythm (ventricular fibrillation) EMS reported 7 shocks and multiple rounds of epi and ROSC at 32 minutes. EMS had called in prior to arrival to call the code but at that time they achieved ROSC. Upon arrival to the emergency department patient is intubated, being paced. Upon my assessment patient is pulseless and ACLS was initiated again. Tube placement was confirmed. Per EMS Dog Handler department reported that the patient is a DNR but there was no schultz ticket at the home. Patient's was updated. - Laboratory Results Critical Laboratory Results Reviewed: No Critical Results - Radiology Results Critical Radiology Results Reviewed: No Critical Results Discharge - Discharge Clinical Impression: Cardiac arrest Disposition: Referrals: EDWARD BRANCH MD [Primary Care Provider] - Follow up as needed
== END 2020-04-05 20:50 | disposition expired ==
LOC: ER 18:15
DX: I46.9 Cardiac arrest, cause unspecified (principal); C34.90 Malignant neoplasm of unspecified part of unspecified bronchus or lung
CPT/HCPCS: 99283; J0171